=== PATIENT | male | born 1995 | race Caucasian/White ===

== ENCOUNTER 2022-03-14 13:49 | Inpatient (IN) ==
[~2022-03-14 13:49] MED LIST: RAPID SEQUENCE INDUCTION BAG ONE
[2022-03-14] MEDS ORDERED: PROPOFOL IV EMULSION 10 MG/ML 100 ML VIAL IV ONE (13:53)
[2022-03-14] MEDS ORDERED: STAT IV Infusion **Titration per Protocol STA (13:57)
[2022-03-14] MEDS ORDERED: PROPOFOL BOLUS FROM BAG IV PRN (13:57)
[2022-03-14] MEDS ORDERED: SODIUM CHLORIDE 0.9% 1000ML 2,000 ML IV ONE (13:57)
[2022-03-14] MEDS ORDERED: propofoL 1,000 MG/100 ML VIAL IV SCH (14:00)
[2022-03-14 14:09] LABS: iSTAT Creatinine 1.2 mg/dl (0.6-1.3); iSTAT Hemoglobin 16.3 g/dl (14.0-18.0); iSTAT Ionized Calcium 1.26 mmol/l (1.12-1.32); iSTAT Potassium 5.1 mmol/L (3.3-5.0)
[2022-03-14 14:12] LABS: Basophils # (auto) 0.01 K/uL (0-0.2); Basophils % (auto) 0.1 %; Eosinophils # (auto) 0.05 K/uL (0-0.5); Eosinophils % (auto) 0.7 %; Hematocrit (blood only) 45.6 % (42-52); Hemoglobin 16.4 g/dL (14.0-18.0); Immature Granulocytes # (auto) 0.03 K/uL (0.00-0.02); Immature Granulocytes % (auto) 0.4 %; Lymphocytes # (auto) 1.69 K/uL (1.2-3.4); Mean Corpuscular Hemoglobin 32.3 pg (25-34); Mean Corpuscular Volume 89.9 fL (80-100); Mean Platelet Volume 11.1 fL (7.4-10.4); Monocytes # (auto) 0.38 K/uL (0.11-0.59); Monocytes % (auto) 4.9 %; Neutrophils # (auto) 5.53 K/uL (1.4-6.5); Neutrophils % (auto) 71.9 %; Platelet Count 154 K/uL (130-400); RDW Coefficient of Variation 12.5 % (11.5-14.5); RDW Standard Deviation 41.5 fL (36.4-46.3); Red Blood Count 5.07 M/uL (4.7-6.1); White Blood Count 7.69 K/uL (4.8-10.8)
[2022-03-14] MEDS ORDERED: cefTRIAXone SODIUM 2,000 MG in DEXTROSE 5% 50 ML IV ONE (14:15)
[2022-03-14] MEDS ORDERED: metroNIDAZOLE 500 MG/100 ML BAG IV ONE (14:15)
--- NOTE | 2022-03-14 14:18 | XRay Report ---
XR chest 1V portable supine CLINICAL HISTORY: post intubation COMPARISON STUDY: No previous studies for comparison. FINDINGS: Tip of endotracheal tube is 7.5 cm above the meri. Tip of nasogastric tube is within the gastric cardia. Enlargement of the cardiac silhouette may be technical. No pneumothorax is identified on supine exam. Lungs are clear. Pulmonary vascularity is normal. IMPRESSION: 1. Tip of endotracheal tube 7.5 cm above the meri. The tube could be advanced 2 cm. 2. Tip of nasogastric tube within the gastric cardia. Tip could be advanced 5 cm. 3. Enlargement of the cardiac silhouette, likely technical. ACT 112: Negative or not required by law. Electronically signed by: Rc Oshea M.D. 03/14/2022 2:16 PM
[2022-03-14 14:19] LABS: Appearance Urine Cloudy (Clear); Blood Urine 1+ (Negative); Color Urine Orange; Epithelial Cell Urine Auto >30 /lpf (0-5); Glucose Urine UA Negative (Negative); Ketones Urine 1+ (Negative); Leukocyte Esterase Urine Trace (Negative); Nitrite Urine Positive (Negative); Protein Urine 2+ (Negative); Specific Gravity Urine 1.027 (1.000-1.030); Urobilinogen Urine Negative (Negative); pH Urine 5.5 (4.5-7.5)
[2022-03-14] MEDS ORDERED: cefTRIAXone SODIUM 2000MG/70ML D5W IV ONE ×2 (14:19→14:30)
[2022-03-14] MEDS ORDERED: OPTIRAY 320 100ml IV ONE (14:21)
[2022-03-14 14:24] LABS: Bilirubin Urine 2+ (Negative)
[2022-03-14 14:33] LABS: Bacteria Urine Automated 1+ (Negative); Calcium Oxalate Crystals Urine Present (None Prsent); Mucus Urine Present (None Prsent)
--- NOTE | 2022-03-14 14:38 | CT Scan Report ---
CT OF THE HEAD WITHOUT CONTRAST CLINICAL HISTORY: unresponsive COMPARISON STUDY: No previous studies for comparison. TECHNIQUE: Helical axial images of the head were obtained without IV contrast. Automated exposure con trol was utilized for the study. A dose lowering technique was utilized adhering to the principles o f ALARA. FINDINGS: No acute intracranial hemorrhage, midline shift or mass effect is present. The ventricular system is unremarkable. The basal cisterns are patent. No extra-axial collections are present. There are no findings to suggest acute dural sinus thrombosis or acute territorial infarct. No significant calvarial abnormalities are present. Fluid within the nasopharynx is likely related to intubation. Mi nimal ethmoid sinus mucosal thickening is present. IMPRESSION: 1. No acute intracranial findings. 2. No acute calvarial fracture. ACT 112: Negative or not required by law. Electronically signed by: Rc Oshea M.D. 03/14/2022 2:36 PM
[2022-03-14 14:42] LABS: Albumin Globulin Ratio 1.5 (0.9-2); Bilirubin,Total 1.2 mg/dl (0.2-1.0); Calcium 9.8 mg/dl (8.5-10.1); Creatinine Clr Calc Pharmacy 16.9 ml/min; Est GFR (African American) 52.5 ml/min; Est GFR (Non-African American) 45.3 ml/min; Globulin 3.3 gm/dl (2.5-4.0); Magnesium 1.7 mg/dl (1.7-2.4); Total Protein 8.3 gm/dl (6.0-8.3)
[2022-03-14 14:43] LABS: Amphetamines+Metham, Urine Neg (Neg); Barbiturates, Urine Neg (Neg); Benzodiazepine, Urine Neg (Neg); Cocaine, Urine Neg (Neg); MDMA (Ecstacy), Urine Neg (Neg); Methadone, Urine Neg (Neg); Opiate, Urine Neg (Neg); Phencyclidine, Urine Neg (Neg)
[2022-03-14 14:44] LABS: Troponin I High Sensitivity 3.4 pg/ml (0-20)
--- NOTE | 2022-03-14 14:45 | CT Scan Report ---
CT OF THE CHEST WITH IV CONTRAST CLINICAL HISTORY: eval for aspiration: unresponsive COMPARISON STUDY: Chest radiograph performed earlier today. TECHNIQUE: Following IV administration of 93 mL of Optiray, helical axial images of the chest were o btained. Sagittal and coronal reconstructions were viewed as well as maximal intensity projections o n an independent 3-D workstation. Automated exposure control was utilized for the study. A dose low ering technique was utilized adhering to the principles of ALARA. CT DOSE: 1043.04 mGy.cm FINDINGS: Endotracheal and nasogastric tubes are in place. No thoracic aortic dissection is present. Pulmonary arteries are suboptimally opacified but there is no central pulmonary embolus. There is genna rderline cardiomegaly. No enlarged thoracic lymph nodes are present. There is no pneumothorax or pleu ral effusion. There are mild alveolar opacities within the left lung. There is no cavitation. Central airways are patent. No acute fracture is identified within visualized portions of the thorax. Mild s plenomegaly is noted. IMPRESSION: 1. Mild airspace opacities within the left lung which favor an infectious process. Aspiration pneumon itis is also within the differential. 2. No pneumothorax. 3. Borderline cardiomegaly. 4. Mild splenomegaly. ACT 112: Negative or not required by law. Electronically signed by: Rc Oshea M.D. 03/14/2022 2:43 PM
[2022-03-14] MEDS ORDERED: fentaNYL citrate 100 MCG/2 ML VIAL ONE (14:58)
[2022-03-14] MEDS ORDERED: fentaNYL citrate 100 MCG/2 ML VIAL IV ONE (15:07)
[2022-03-14 16:10] LABS: Acetaminophen < 3 ug/ml (10-30); Salicylate < 3.0 mg/dl (3.0-30)
--- NOTE | 2022-03-14 17:26 | History & Physical Report ---
Date of Service March 14, 2022 Assessment & Plan (1) Unresponsiveness: Plan: Patient with episode of unresponsiveness during physical activity - this lasted 1-3 hours. DDX: Cardiovascular vs. Neurogenic vs. endocrine vs other - Amnestic for whole episode- spontaneously awoken in EMD and successfully extubated - Urine Tox screen negative - metabolically with normal HCO3 and without gap - Potassium 5, Mag 1.7- repeat - Will obtain ECHO in am - borderline limits of heart on CXR and CT scan of chest - TSH normal - AM cortisol - WBC normal- blood and urine cultures pending -telemetry overnight - EEG could be considered if all other etiologies r/o (2) Afib: Plan: ECG obtained via EMD - attached to hard chart - Cardioverted for HR of 127 in the EMD - NSR at this time - no further ectopy - as above - ECHO in am (3) Aspiration pneumonitis: Plan: No further abx at this time - follow fever curve - ICS q1 while awake (4) Hypomagnesemia: Plan: Replete keep mag ~2.0 (5) Abnormal urinalysis: Plan: + WBC, +RBC, + hyaline Casts > 30 epithelial cells - repeat in AM with janitor and cleaner sample History of Present Illness Primary Care Provider: NO PCP 26 YOM with history of: Depression, takes emtricitabine-tenofovir for prep. Patient was brought in by EMS today for being found on park bench not responsive. The patient was nasally intubated initially by EMD for obtundation on arrival around 1340. He spontaneously awoken and was then extubated 1400. He was also cardioverted in the EMD for HR of 127 following being bradycardic via EMS in the 40s. Also was hypothermic on arrival which has resolved. Patient is currently awake and hemodynamically stable without deficits. Patient has no recollection of the events. Patient states he got up this morning and went for a run, unsure if he ate anything before this. During his run he remembers vomiting on his shoes and possibly not feeling well so sat on a bench. He was discovered by some local business personnel, was unresponsive and did not wake up after they dumped water on him so EMS was called. Patient denies any history of this occurring previously. He runs 2-3 times per week and does weight lifting and other cardiac intensity work outs 3-5 days per week. He denies any workout or pre-work out supplement use. Denies any new medications. Smokes marijuana maybe 1-2 times per month. Takes a Magnesium supplementation. In the EMD the patient had CT scan of head, CT scan of the chest and CXR completed. He was given Rocephin and Flagyl for aspiration pneumonitis. CT scan with borderline cardiac size, and mild opacities. CT scan of the head with mucosal thickening. UA was obtained. Patient will be admitted to PCU follow hemodynamics and telemetry. ECHO in the am. Patient denies any family history of cardiac disease, dysrhythmias or sudden cardiac deaths. COVID test on admission is: NEGATIVE Allergies Allergy/AdvReac Type Severity Reaction Status Date / Time No Known Allergies Allergy Unverified 03/14/22 16:40 Home Medications Medication Instructions Recorded Confirmed Type emtricitabine 200 mg-tenofovir 1 tab PO DAILY 03/14/22 03/14/22 History disoproxil fumarate 300 mg tablet escitalopram oxalate 10 mg tablet 10 mg PO DAILY 03/14/22 03/14/22 History Past Med/Surg History Medical History (Updated 03/14/22 @ 18:28 by MITCH Fernandes) Afib Aspiration pneumonitis Depression Hypomagnesemia Family History (Updated 03/14/22 @ 17:45 by MITCH Fernandes) Denies family history of Diabetes Coronary heart disease Dyslipidemia Depression Heart disease Kidney disease COPD (chronic obstructive pulmonary disease) Hypertension Stroke Social History (Updated 03/14/22 @ 17:43 by MITCH Fernandes) Smoking Status: Never smoker Hx Alcohol Use: No Hx Substance Use: Yes (uses a few times a week) Preferred Language: Bengali Administrative Support Assistant Required: No Beliefs That Will Affect Care: None Current Living Situation: Other Current Living Situation Comment: lives with friends Feels Safe at Home: Yes Safety Concerns: Feels Safe At This Time Assistive Devices: None Review of Systems Review of Systems: REVIEW OF SYSTEMS: Constitutional: No fever, sweats or chills Eyes: No diplopia, no worsening or blurred vision ENT: normal hearing, no trouble swallowing Respiratory: No cough, sputum, dyspnea at rest or on exertion Cardiovascular: No chest pain, tightness or palpitations Abdomen: No pain, nausea, vomiting, diarrhea or constipation Musculoskeletal: No joint pain, calf pain, swelling Neurologic: No weakness, numbness/tingling, or balance problems Psychiatric: (+)depression Skin: No rash or itch Physical Exam Physical Exam: PHYSICAL EXAM: General: awake, alert, no apparent distress Head: Normocephalic, atraumatic ENT: PERRL, EOMI, no pharyngeal exudate, mucous membranes moist Neuro: AAO x 3, speech clear and appropriate, strength intact bilaterally 5/5, sensation intact and equal all extremities and dermatomes, no pronator drift, no cervical pain with palpation/movement Chest: equal rise and fall of the chest, no accessory muscle use, no heaves or thrills, Clear to auscultation, on room air, Cardiac: Regular rate and rhythm, telemetry reviewed, skin warm dry, cap refill <3 seconds, peripheral pulses +2 no JVD, no murmur, no edema GI: NABS x 4 quadrants, soft, nontender to palpation, no rebound, guarding or tenderness : Spontaneously voiding, no pain, no CVA tenderness, Extremities: Normal inspection, no peripheral edema or erythema, calfs nontender to palpation Psych: Normal mood and affect Skin: no rash or erythema Results & Data Results & Data ([facility]) Vital Signs (Past 12 Hours) Vital Signs Temp Pulse Pulse Resp BP BP Pulse Ox 03/14/22 17:00 89 19 123/80 97 03/14/22 16:44 92 H 18 118/87 96 03/14/22 16:25 90 14 134/98 95 03/14/22 16:20 96 H 14 128/96 98 03/14/22 16:15 95 H 12 121/92 100 03/14/22 16:12 14 97 03/14/22 16:11 98 H 18 129/85 100 03/14/22 16:05 99 H 20 96/60 L 97 03/14/22 15:50 61 21 100/64 99 03/14/22 15:40 62 21 98/61 L 99 03/14/22 15:30 64 20 101/65 100 03/14/22 15:25 35.3 C L 72 18 109/76 100 03/14/22 15:21 64 20 99/63 L 100 03/14/22 15:17 66 22 100 03/14/22 15:15 63 20 99/63 L 100 03/14/22 15:03 67 18 103/76 100 03/14/22 15:00 108 H 16 83/60 L 100 03/14/22 14:49 127 H 19 100 03/14/22 14:40 34.7 C L 127 H 18 107/86 100 03/14/22 14:15 117/92 03/14/22 13:53 127 H 16 126/85 95 Laboratory Results Abnormal lab results 03/14/22 03/14/22 03/14/22 Range/Units 13:53 13:53 13:57 MPV 11.1 H (7.4-10.4) fL Immature Gran # (Auto) 0.03 H (0.00-0.02) K/uL POC Potassium 5.1 H (3.3-5.0) mmol/L POC Chloride 100 L (101-112) mmol/L Glucose 106 H (70-99(Fasting)) mg/dl POC Glucose (other) 114 H (70-99) mg/dl Total Bilirubin 1.2 H (0.2-1.0) mg/dl Urine Appearance (Clear) Urine Protein (Negative) Urine Ketones (Negative) Urine Blood (Negative) Urine Nitrite (Negative) Urine Bilirubin (Negative) Ur Leukocyte Esterase (Negative) Urine WBC (Auto) (0-5) /hpf Urine RBC (Auto) (0-4) /hpf U Hyaline Cast (Auto) (0-5) /lpf U Epithel Cells (Auto) (0-5) /lpf Urine Bacteria (Auto) (Negative) Calcium Oxalate Crystal (None Prsent) Urine Mucus (None Prsent) Salicylates (3.0-30) mg/dl Acetaminophen (10-30) ug/ml 03/14/22 03/14/22 Range/Units 14:03 15:24 MPV (7.4-10.4) fL Immature Gran # (Auto) (0.00-0.02) K/uL POC Potassium (3.3-5.0) mmol/L POC Chloride (101-112) mmol/L Glucose (70-99(Fasting)) mg/dl POC Glucose (other) (70-99) mg/dl Total Bilirubin (0.2-1.0) mg/dl Urine Appearance Cloudy A (Clear) Urine Protein 2+ H (Negative) Urine Ketones 1+ H (Negative) Urine Blood 1+ H (Negative) Urine Nitrite Positive A (Negative) Urine Bilirubin 2+ H (Negative) Ur Leukocyte Esterase Trace H (Negative) Urine WBC (Auto) 5-10 H (0-5) /hpf Urine RBC (Auto) 5-10 H (0-4) /hpf U Hyaline Cast (Auto) 5-10 H (0-5) /lpf U Epithel Cells (Auto) >30 H (0-5) /lpf Urine Bacteria (Auto) 1+ H (Negative) Calcium Oxalate Crystal Present A (None Prsent) Urine Mucus Present A (None Prsent) Salicylates < 3.0 L (3.0-30) mg/dl Acetaminophen < 3 L (10-30) ug/ml Diagnostic Findings Chest CT 03/14/22 14:05 CT OF THE CHEST WITH IV CONTRAST CLINICAL HISTORY: eval for aspiration: unresponsive COMPARISON STUDY: Chest radiograph performed earlier today. TECHNIQUE: Following IV administration of 93 mL of Optiray, helical axial images of the chest were obtained. Sagittal and coronal reconstructions were viewed as well as maximal intensity projections on an independent 3-D workstation. Automated exposure control was utilized for the study. A dose lowering technique was utilized adhering to the principles of ALARA. CT DOSE: 1043.04 mGy.cm FINDINGS: Endotracheal and nasogastric tubes are in place. No thoracic aortic dissection is present. Pulmonary arteries are suboptimally opacified but there is no central pulmonary embolus. There is borderline cardiomegaly. No enlarged thoracic lymph nodes are present. There is no pneumothorax or pleural effusion. There are mild alveolar opacities within the left lung. There is no cavitation. Central airways are patent. No acute fracture is identified within visualized portions of the thorax. Mild splenomegaly is noted. IMPRESSION: 1. Mild airspace opacities within the left lung which favor an infectious process. Aspiration pneumonitis is also within the differential. 2. No pneumothorax. 3. Borderline cardiomegaly. 4. Mild splenomegaly. ACT 112: Negative or not required by law. Electronically signed by: Rc Oshea M.D. 03/14/2022 2:[address] 03/14/22 14:05 CT OF THE HEAD WITHOUT CONTRAST CLINICAL HISTORY: unresponsive COMPARISON STUDY: No previous studies for comparison. TECHNIQUE: Helical axial images of the head were obtained without IV contrast. Automated exposure control was utilized for the study. A dose lowering technique was utilized adhering to the principles of ALARA. FINDINGS: No acute intracranial hemorrhage, midline shift or mass effect is present. The ventricular system is unremarkable. The basal cisterns are patent. No extra-axial collections are present. There are no findings to suggest acute dural sinus thrombosis or acute territorial infarct. No significant calvarial abnormalities are present. Fluid within the nasopharynx is likely related to intubation. Minimal ethmoid sinus mucosal thickening is present. IMPRESSION: 1. No acute intracranial findings. 2. No acute calvarial fracture. ACT 112: Negative or not required by law. Electronically signed by: Rc Oshea M.D. 03/14/2022 2:36 PM Chest X-Ray 03/14/22 14:08 XR chest 1V portable supine CLINICAL HISTORY: post intubation COMPARISON STUDY: No previous studies for comparison. FINDINGS: Tip of endotracheal tube is 7.5 cm above the meri. Tip of nasogastric tube is within the gastric cardia. Enlargement of the cardiac silhouette may be technical. No pneumothorax is identified on supine exam. Lungs are clear. Pulmonary vascularity is normal. IMPRESSION: 1. Tip of endotracheal tube 7.5 cm above the meri. The tube could be advanced 2 cm. 2. Tip of nasogastric tube within the gastric cardia. Tip could be advanced 5 c m. 3. Enlargement of the cardiac silhouette, likely technical. ACT 112: Negative or not required by law. Electronically signed by: Rc Oshea M.D. 03/14/2022 2:16 PM Medications Administered Home Medications emtricitabine 200 mg-tenofovir disoproxil fumarate 300 mg tablet 1 tab PO DAILY 03/14/22 [History Confirmed 03/14/22] escitalopram oxalate 10 mg tablet 10 mg PO DAILY 03/14/22 [History Confirmed 03/14/22] Active Medications Propofol (Diprivan) 1,000 mg in 100 mls @ 0 mls/hr IV .Q0M [facility], [facility]; Protocol Stop: 03/17/22 13:59 Last Titration: 03/14/22 16:11 Dose: 0 mcg/kg/min, 0 mls/hr Documented by: Propofol (Propofol Bolus From Bag) 20 mg IV Q5M PRN PRN Reason: Sedation Stop: 03/17/22 13:56 Last Admin: 03/14/22 14:07 Dose: 20 mg Documented by: Propofol (Diprivan) 1,000 mg in 100 mls @ 0 mls/hr IV .Q0M [facility]; Protocol Stop: 03/17/22 13:59 Last Titration: 03/14/22 16:11 Dose: 0 mcg/kg/min, 0 mls/hr Documented by: [id number] Titration: 03/14/22 16:03 Dose: 15 mcg/kg/min, 7.4 mls/hr Documented by: [id number] Titration: 03/14/22 15:50 Dose: 20 mcg/kg/min, 9.8 mls/hr Documented by: [id number] Titration: 03/14/22 14:36 Dose: 25 mcg/kg/min, 12.3 mls/hr Documented by: [id number] Titration: 03/14/22 14:35 Dose: 25 mcg/kg/min, 12.3 mls/hr Documented by: [id number] Admin: 03/14/22 14:00 Dose: 20 mcg/kg/min, 9.8 mls/hr Documented by: [id number] Cosigned by: [id number] Propofol (Propofol Bolus From Bag) 20 mg IV Q5M PRN PRN Reason: Sedation Stop: 03/17/22 13:56 Last Admin: 03/14/22 14:07 Dose: 20 mg Documented by: [id number] Cosigned by: [id number] Discontinued Medications Ceftriaxone Sodium (Ceftriaxone Sodium 2000mg/70ml D5w) Confirm Administered Dose 2,000 mg IV .STK-MED ONE Stop: 03/14/22 14:20 Last Admin: 03/14/22 14:39 Dose: 2,000 mg Documented by: [id number] Ceftriaxone Sodium (Ceftriaxone Sodium 2000mg/70ml D5w) 2,000 mg IV NOW ONE Stop: 03/14/22 14:31 Last Admin: 03/14/22 14:39 Dose: Not Given Documented by: [id number] Fentanyl Citrate (Fentanyl Citrate 100 Mcg/2 Ml Vial) Confirm Administered Dose 100 mcg .ROUTE .STK-MED ONE Stop: 03/14/22 14:59 Last Increment: 03/14/22 15:07 Dose: 50 mcg Documented by: [id number] Fentanyl Citrate (Fentanyl Citrate 100 Mcg/2 Ml Vial) 50 mcg IV NOW ONE Stop: 03/14/22 15:08 Last Admin: 03/14/22 15:10 Dose: Not Given Documented by: [id number] Sodium Chloride (Nss 1000ml) 2,000 mls @ 999 mls/hr IV .Q2H1M ONE Stop: 03/14/22 15:57 Last Infusion: 03/14/22 17:44 Dose: 0 mls/hr Documented by: [id number] Admin: 03/14/22 13:45 Dose: 999 mls/hr Documented by: [id number] Metronidazole (Flagyl) 500 mg in 100 mls @ 100 mls/hr IV NOW ONE Stop: 03/14/22 15:14 Last Infusion: 03/14/22 17:44 Dose: 0 mls/hr Documented by: [id number] Admin: 03/14/22 14:46 Dose: 100 mls/hr Documented by: [id number] Ioversol (Optiray 320 100ml) 93 ml IV ONCE ONE Stop: 03/14/22 14:22 Last Admin: 03/14/22 14:29 Dose: 93 ml Documented by: [id number] Miscellaneous (Rapid Sequence Induction Bag) Confirm Administered Dose 1 ea .ROUTE .STK-MED ONE Stop: 03/14/22 13:42 Last Admin: 03/14/22 14:27 Dose: 1 ea Documented by: [id number] Propofol (Propofol Iv Emulsion 10 Mg/Ml 100 Ml Vial) Confirm Administered Dose 1,000 mg IV .STK-MED ONE Stop: 03/14/22 13:54 Last Admin: 03/14/22 14:18 Dose: Not Given Documented by: [id number] ECG Additional Comments: AFIB with RVR interpreted - on hard chart Repeat: Normal sinus rhythm Normal ECG When compared with ECG of 14-MAR-2022 15:03, (unconfirmed) No significant change was found QT/QTc 352/423 m QRS duration 86 ms Code Status & VTE Plan Code Status CODE: FULL VTE: SCDS, Ambulation Supervising Physician Co-Signing Physician Notes I supervised MITCH Huntley on this admission. I interviewed and examined the patient independently of him. The plan is as written in his note except for any following changes/exceptions: None 26yo M found unresponsive on a park bench today. Remembers only that he went for a run or jog today. Denies any hx of drug use. No family hx of sudden cardiac , seizure, or other related etiology. Was in afib with RVR in the ER and cardioverted. Plan to admit for telemetry, echo. Etiology at this time is unclear. Could consider EEG as well, though prolonged down time would point away from seizure. PG Care Time/CCT Total # of Minutes Spent Total Time Spent with Patient: Total time spent is greater than 50% in coordination of care (as documented) at patient's floor/unit and/or counseling patient: Coding Level of Care Code 17738 Initial Inpt Care Lvl 3 Diagnoses Afib I48.91 Aspiration pneumonitis J69.0 Hypomagnesemia E83.42 Unresponsiveness R41.89 Abnormal urinalysis R82.90
--- NOTE | 2022-03-14 17:39 | Emergency Department Note ---
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 He was initially an unknown male patient found unresponsive on a bench downtown having vomited. It appeared that he may have been running as he was only wearing a pair of jogging shorts, running shoes and earbuds. Upon arrival to the ER, the patient had snoring respirations and it seemed he would not be able to protect his airway, RSI was performed and the patient's airway was protected with endotracheal intubation. Once the patient was placed on the ventilator and the endotracheal tube was suctioned, bile was suctioned from his airway and there was concern that the patient may have aspirated at some point. The patient was prophylaxed with IV Rocephin and IV Cipro. Upon initial presentation per EMS, the patient was in a normal sinus rhythm at a rate of 65 but converted into an atrial fibrillation with a rapid ventricular response in the 140s. He remained in his tachycardic rate in the emergency department and eventually his blood pressure dropped and required synchronized cardioversion. He tolerated this procedure well and his blood pressure responded nicely. The patient became hypothermic here in the emergency department and required a bear hugger to support his body temperature. A Munoz catheter was placed to measure urine output and the patient had fairly little urine output despite receiving 2 L of crystalloid therapy. One of the initial thoughts was the patient may be suffering from acute heat stroke or heat exhaustion and he was fluid rehydrated with crystalloids. We also consider the possibility of acute rhabdomyolysis initially but the patient's total CK was normal. The patient went for CT scan of the brain which was unremarkable. He also went for CT scan of the chest to further evaluate for possible aspiration. There was evidence of a left sided opacity which is most likely consistent with an aspiration pneumonitis. Just prior to the admitting team evaluating the patient, the patient seemed to regain consciousness and opened his eyes and seemed to have purposeful movements and began to communicate. The propofol was slowly turned off and the patient was easily extubated. He had no significant recollection of what may have happened other than he had gone out for normal long distance run which is not unusual for him. Triage Nursing notes reviewed and agree with them. Vital Signs: reviewed and remarkable for hypothermia Differential diagnosis: Drug intoxication, alcohol intoxication, hypoglycemia, seizure, intracranial hemorrhage, acute CVA, heatstroke, rhabdomyolysis, heat exhaustion, anaphylaxis ER treatment provided: IV normal saline bolus x2 L IV rocuronium IV etomidate IV Cipro drip IV Rocephin IV fentanyl IV propofol drip Diagnostics interpreted by me: ECG: Atrial fibrillation at a rate of 129 with evidence of early repolarization. There is no ectopy. No obvious ischemia. Repeat EKG (status post cardioversion ) normal sinus rhythm at a rate of 67. No ST segment elevation or signs of ischemia. There is no ectopy Cardiac Monitoring: A. fib with RVR at a rate of 127 Laboratory studies: See below Imaging studies: As per my interpretation Portable chest x-ray: Endotracheal tube is 5 cm above the meri; cardiomegaly; no obvious pulmonary pathology HPI: 26/M arrives for evaluation of unresponsiveness. The patient was noted by business members downtown to be sitting on a bench and found to be unresponsive. They thought he may be suffering from heatstroke or heat exhaustion and poured ice water on him but he did not come to. They called 911. Upon EMS arrival, the patient was unresponsive but breathing. He was bradycardic with a normal blood pressure. His BSG was normal. It appeared that he may have been running as he had on jogging shorts with no T-shirt and running shoes. He had vomited on himself. ROS: Unobtainable as he was unresponsive PAST MEDICAL HISTORY: Unobtainable as he was unresponsive PAST SURGICAL HISTORY: Unobtainable FAMILY HISTORY: Unobtainable SOCIAL HISTORY: Unobtainable HOME MEDICATIONS: Unobtainable ALLERGIES: Unobtainable VITALS:See Below PHYSICAL EXAMINATION: HEENT: Head - normocephalic and atraumatic Pupils are equal, round, and reactive to light. Extraocular eye muscles are intact, and sclera are anicteric. Nose - moist nasal mucosa without discharge. Mouth - moist buccal mucosa. Oropharynx is nonerythematous and there is no tonsillar exudate or edema noted. Neck: Supple; no nuchal rigidity Heart: Irregularly irregular rhythm with a tachycardic rate Lungs: Clear to auscultation bilaterally with no wheezes, rales, or rhonchi. Abdomen: Soft, completely nontender, nondistended, with good bowel sounds. There are no palpable pulsatile masses or hepatosplenomegaly. There is no guarding, rigidity, or rebound noted. Extremities: No evidence of cyanosis, clubbing, or edema. There are easily palpable peripheral pulses. Skin: warm and dry with good turgor and no rashes. Multiple tattoos ED COURSE: Times/Reassessments: The patient was evaluated emergently in room A1. Report was given from EMS. An order was placed for continuous cardiac monitoring. The patient was in atrial fibrillation with rapid ventricular response at a rate of 127. A twelve-lead EKG was obtained. Decision was made to perform rapid sequence induction with endotracheal intubation. Endotracheal Intubation Indication snoring respirations. The patient was on 100% oxygen via NRB prior to the procedure. Suction, airway equipment, RSI drugs, respiratory equipment, and appropriate personnel were prepared prior to the initiation of the procedure. A time out was taken. Induction was performed with etomidate and rocuronium. After observing the clinical benefit of the medications, the airway was easily visualized utilizing a glide scope. A 7.5size ETT tube was placed atraumatically to 24cm using standard technique. The cuff inflated without signs of malfunction. There were bilateral breath sounds, positive colormetric change, no gastric sounds, and post procedure pulse oximetry was 98%. Post intubation sedation was administered using propofol. There were no complications. A postintubation x-ray was obtained. The patient was bolused with 2 L of normal saline solution and a Munoz catheter was inserted. The patient was noted to be hypothermic and a bear hugger was applied. An OG tube was placed. When the patient was placed on the ventilator, suction revealed bile coming from the lungs and there was concern for aspiration. The patient will be started on IV antibiotics-IV Rocephin and IV Cipro. The patient will go for CT scan of the brain and CT scan of the chest. An ABG was obtained revealed a pH of 7.32 PCO2 of 52 and a bicarb of 27. Some slight adjustments were made to the ventilator to account for this pH and bicarb. Upon returning from radiology, the patient was noted to still be significantly tachycardic with A. fib/RVR and now his blood pressure had dropped despite receiving IV crystalloid therapy. The decision was made to perform a synchronized cardioversion. A time out was taken and the correct patient and procedure identified. The patient was given 50 mcg of IV fentanyl. The biphasic defibrillator was set to 100 joules of energy and synched. After confirmation of sedation and "all clear" safety check the synchronized shock was delivered. This resulted in successful conversion of the dysrhythmia back into sinus rhythm. See nursing notes for dosages and times. The patient's blood pressure was more stable after this. Nursing staff alerted me that the patient was becoming more responsive. We decreased the propofol dose and the patient was fully responsive and able to communicate. At that point patient was extubated and placed on nonrebreather mask he tolerated this well. He has no significant memory of the incidence of today. I discussed the case with the [facility] Hospitalist and they will evaluate for further management. I have personally spent greater than 130 minutes of critical care time in the direct management of this patient. This includes bedside care, interpretation of diagnostic studies, and testing, discussion with consultants, patient, and family members, and other required patient management activities. This 130 minutes is in excess of all separately billable procedures. 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 Beliefs That Will Affect Care: None Current Living Situation: Other Current Living Situation Comment: lives with friends Feels Safe at Home: Yes Assistive Devices: None Allergies Allergies Allergy/AdvReac Type Severity Reaction Status Date / Time No Known Allergies Allergy Unverified 03/14/22 16:40 Home Meds Home Medications Medication Instructions Recorded Confirmed emtricitabine 200 mg-tenofovir 1 tab PO DAILY 03/14/22 03/14/22 disoproxil fumarate 300 mg tablet escitalopram oxalate 10 mg tablet 10 mg PO DAILY 03/14/22 03/14/22 Results & Data (ED) Vital Signs Vital Signs - 24 hr 03/14/22 13:53 03/14/22 14:04 03/14/22 14:15 Temperature Temperature Source Pulse Rate 127 H Pulse Rate [Finger] Pulse Rhythm [Finger] Pulse Strength [Finger] Respiratory Rate 16 Respiratory Effort / Characteristics Respiratory Depth Respiratory Pattern Blood Pressure 126/85 Blood Pressure [Right Arm] 117/92 Blood Pressure Mean 98 Blood Pressure Mean [Right Arm] 100 Blood Pressure Position [Right Arm] Pulse Oximetry 95 Oxygen Delivery Method Nasal Cannula Mechanical Vent Oxygen Flow Rate 6 Fraction of Inspired Oxygen 60 SaO2/FiO2 Ratio Sepsis Recent Fever Within 48 Hours No Sepsis New/Unexplained Change in Mental Status No Sepsis Action Taken by Nursing No Action Required End-Tidal CO2 03/14/22 14:40 03/14/22 14:49 03/14/22 15:00 Temperature 34.7 C L Temperature Source Rectal Pulse Rate 127 H Pulse Rate [Finger] 127 H 108 H Pulse Rhythm [Finger] Pulse Strength [Finger] Respiratory Rate 18 19 16 Respiratory Effort / Characteristics Respiratory Depth Respiratory Pattern Blood Pressure Blood Pressure [Right Arm] 107/86 83/60 L Blood Pressure Mean Blood Pressure Mean [Right Arm] 93 67 Blood Pressure Position [Right Arm] Pulse Oximetry 100 100 100 Oxygen Delivery Method Mechanical Vent Mechanical Vent Oxygen Flow Rate Fraction of Inspired Oxygen 35 50 SaO2/FiO2 Ratio 285 Sepsis Recent Fever Within 48 Hours Sepsis New/Unexplained Change in Mental Status Sepsis Action Taken by Nursing End-Tidal CO2 45 03/14/22 15:03 03/14/22 15:15 03/14/22 15:17 Temperature Temperature Source Pulse Rate 66 Pulse Rate [Finger] 67 63 Pulse Rhythm [Finger] Pulse Strength [Finger] Respiratory Rate 18 20 22 Respiratory Effort / Characteristics Respiratory Depth Respiratory Pattern Blood Pressure Blood Pressure [Right Arm] 103/76 99/63 L Blood Pressure Mean Blood Pressure Mean [Right Arm] 85 75 Blood Pressure Position [Right Arm] Pulse Oximetry 100 100 100 Oxygen Delivery Method Mechanical Vent Mechanical Vent Oxygen Flow Rate Fraction of Inspired Oxygen 35 28 SaO2/FiO2 Ratio 285 Sepsis Recent Fever Within 48 Hours Sepsis New/Unexplained Change in Mental Status Sepsis Action Taken by Nursing End-Tidal CO2 47 03/14/22 15:21 03/14/22 15:25 03/14/22 15:30 Temperature 35.3 C L Temperature Source Rectal Pulse Rate Pulse Rate [Finger] 64 72 64 Pulse Rhythm [Finger] Regular Pulse Strength [Finger] Normal Respiratory Rate 20 18 20 Respiratory Effort / Characteristics Non-Labored Respiratory Depth Normal Respiratory Pattern Regular Blood Pressure Blood Pressure [Right Arm] 99/63 L 109/76 101/65 Blood Pressure Mean Blood Pressure Mean [Right Arm] 75 87 77 Blood Pressure Position [Right Arm] Lying Pulse Oximetry 100 100 100 Oxygen Delivery Method Mechanical Vent Mechanical Vent Mechanical Vent Oxygen Flow Rate Fraction of Inspired Oxygen 35 35 35 SaO2/FiO2 Ratio 285 285 285 Sepsis Recent Fever Within 48 Hours Sepsis New/Unexplained Change in Mental Status Sepsis Action Taken by Nursing End-Tidal CO2 03/14/22 15:40 03/14/22 15:50 03/14/22 16:05 Temperature Temperature Source Pulse Rate Pulse Rate [Finger] 62 61 99 H Pulse Rhythm [Finger] Regular Regular Regular Pulse Strength [Finger] Normal Normal Normal Respiratory Rate 21 21 20 Respiratory Effort / Characteristics Non-Labored Non-Labored Non-Labored Respiratory Depth Normal Normal Normal Respiratory Pattern Regular Regular Blood Pressure Blood Pressure [Right Arm] 98/61 L 100/64 96/60 L Blood Pressure Mean Blood Pressure Mean [Right Arm] 73 76 72 Blood Pressure Position [Right Arm] Lying Lying Pulse Oximetry 99 99 97 Oxygen Delivery Method Mechanical Vent Mechanical Vent Mechanical Vent Oxygen Flow Rate Fraction of Inspired Oxygen 35 35 SaO2/FiO2 Ratio 282 282 Sepsis Recent Fever Within 48 Hours Sepsis New/Unexplained Change in Mental Status Sepsis Action Taken by Nursing End-Tidal CO2 03/14/22 16:11 03/14/22 16:12 03/14/22 16:15 Temperature Temperature Source Pulse Rate Pulse Rate [Finger] 98 H 95 H Pulse Rhythm [Finger] Regular Regular Pulse Strength [Finger] Normal Normal Respiratory Rate 18 14 12 Respiratory Effort / Characteristics Non-Labored Non-Labored Non-Labored Respiratory Depth Normal Normal Normal Respiratory Pattern Regular Regular Blood Pressure Blood Pressure [Right Arm] 129/85 121/92 Blood Pressure Mean Blood Pressure Mean [Right Arm] 99 101 Blood Pressure Position [Right Arm] Lying Lying Pulse Oximetry 100 97 100 Oxygen Delivery Method Mechanical Vent Non-rebreather Non-rebreather Oxygen Flow Rate Fraction of Inspired Oxygen SaO2/FiO2 Ratio Sepsis Recent Fever Within 48 Hours Sepsis New/Unexplained Change in Mental Status Sepsis Action Taken by Nursing End-Tidal CO2 03/14/22 16:20 03/14/22 16:25 03/14/22 16:44 Temperature Temperature Source Pulse Rate Pulse Rate [Finger] 96 H 90 92 H Pulse Rhythm [Finger] Regular Regular Regular Pulse Strength [Finger] Normal Normal Normal Respiratory Rate 14 14 18 Respiratory Effort / Characteristics Non-Labored Non-Labored Non-Labored Respiratory Depth Normal Normal Normal Respiratory Pattern Regular Regular Regular Blood Pressure Blood Pressure [Right Arm] 128/96 134/98 118/87 Blood Pressure Mean Blood Pressure Mean [Right Arm] 106 110 97 Blood Pressure Position [Right Arm] Lying Lying Lying Pulse Oximetry 98 95 96 Oxygen Delivery Method Non-rebreather Room Air Room Air Oxygen Flow Rate Fraction of Inspired Oxygen SaO2/FiO2 Ratio Sepsis Recent Fever Within 48 Hours Sepsis New/Unexplained Change in Mental Status Sepsis Action Taken by Nursing End-Tidal CO2 03/14/22 17:00 03/14/22 17:30 Temperature 37.0 C Temperature Source Oral Pulse Rate Pulse Rate [Finger] 89 97 H Pulse Rhythm [Finger] Regular Regular Pulse Strength [Finger] Normal Normal Respiratory Rate 19 20 Respiratory Effort / Characteristics Non-Labored Non-Labored Respiratory Depth Normal Normal Respiratory Pattern Regular Regular Blood Pressure Blood Pressure [Right Arm] 123/80 133/80 Blood Pressure Mean Blood Pressure Mean [Right Arm] 94 97 Blood Pressure Position [Right Arm] Lying Lying Pulse Oximetry 97 94 Oxygen Delivery Method Room Air Room Air Oxygen Flow Rate Fraction of Inspired Oxygen SaO2/FiO2 Ratio Sepsis Recent Fever Within 48 Hours Sepsis New/Unexplained Change in Mental Status Sepsis Action Taken by Nursing End-Tidal CO2 Laboratory Data Result diagrams: 03/15/22 07:04 03/15/22 07:04 Lab Results 03/14/22 03/14/22 03/14/22 Range/Units 13:53 13:53 13:53 WBC 7.69 (4.8-10.8) K/uL RBC 5.07 (4.7-6.1) M/uL Hgb 16.4 (14.0-18.0) g/dL POC Hgb (14.0-18.0) g/dl Hct 45.6 (42-52) % POC Hct (42-52) % MCV 89.9 (80-100) fL MCH 32.3 (25-34) pg MCHC 36.0 (32-36) g/dL RDW Std Deviation 41.5 (36.4-46.3) fL RDW Coeff of Jareth 12.5 (11.5-14.5) % Plt Count 154 (130-400) K/uL MPV 11.1 H (7.4-10.4) fL Immature Gran % (Auto) 0.4 % Neut % (Auto) 71.9 % Lymph % (Auto) 22.0 % [place] % (Auto) 4.9 % Eos % (Auto) 0.7 % Baso % (Auto) 0.1 % Neut # (Auto) 5.53 (1.4-6.5) K/uL Lymph # (Auto) 1.69 (1.2-3.4) K/uL [place] # (Auto) 0.38 (0.11-0.59) K/uL Eos # (Auto) 0.05 (0-0.5) K/uL Baso # (Auto) 0.01 (0-0.2) K/uL Immature Gran # (Auto) 0.03 H (0.00-0.02) K/uL POC Sodium (135-144) mmol/L Sodium 141 (136-145) mmol/L POC Potassium (3.3-5.0) mmol/L Potassium 5.0 (3.5-5.1) mmol/L POC Chloride (101-112) mmol/L Chloride 101 (98-107) mmol/L Carbon Dioxide 29 (21-32) mmol/L POC Total CO2 (24-31) mmol/L Anion Gap 11 (3-11) POC Anion Gap (16-25) mmol/L POC BUN (7-18) mg/dl BUN 16 (6-23) mg/dl Creatinine 1.14 (0.6-1.4) mg/dl POC Creatinine (0.6-1.3) mg/dl Est Cr Clr Drug Dosing 16.9 ml/min Est GFR ( Amer) 52.5 ml/min Est GFR (Non-Af Amer) 45.3 ml/min BUN/Creatinine Ratio 14.0 (10-20) Glucose 106 H (70-99(Fasting)) mg/dl POC Glucose (other) (70-99) mg/dl Lactate (0.4-2.0) mmol/L Calcium 9.8 (8.5-10.1) mg/dl POC Ioniz Calcium Mai (1.12-1.32) mmol/l Magnesium 1.7 (1.7-2.4) mg/dl Total Bilirubin 1.2 H (0.2-1.0) mg/dl AST 23 (13-39) U/L ALT 22 (7-52) U/L Alkaline Phosphatase 84 (34-104) U/L Total Creatine Kinase 118 (30-223) U/L Troponin I High Sens 3.4 (0-20) pg/ml Total Protein 8.3 (6.0-8.3) gm/dl Albumin 5.0 (3.4-5.0) gm/dl Globulin 3.3 (2.5-4.0) gm/dl Albumin/Globulin Ratio 1.5 (0.9-2) Procalcitonin (0-0.5) ng/ml TSH 0.869 (0.300-4.500) uIu/ml Urine Color Urine Appearance (Clear) Urine pH (4.5-7.5) Ur Specific [place] (1.000-1.030) Urine Protein (Negative) Urine Glucose (UA) (Negative) Urine Ketones (Negative) Urine Blood (Negative) Urine Nitrite (Negative) Urine Bilirubin (Negative) Urine Urobilinogen (Negative) Ur Leukocyte Esterase (Negative) Urine WBC (Auto) (0-5) /hpf Urine RBC (Auto) (0-4) /hpf U Hyaline Cast (Auto) (0-5) /lpf U Epithel Cells (Auto) (0-5) /lpf Urine Bacteria (Auto) (Negative) Ur Renal Epithelial Cell Urine Crystals Calcium Oxalate Crystal (None Prsent) Urine Mucus (None Prsent) Salicylates (3.0-30) mg/dl Urine Opiates Screen (Neg) Ur Methadone, Qual (Neg) Acetaminophen (10-30) ug/ml Urine Barbiturates (Neg) Ur Phencyclidine (PCP) (Neg) U Amphetamin/Meth Scrn (Neg) MDMA (Ecstasy) Screen (Neg) U Benzodiazepines Scrn (Neg) Ur Cocaine Metabolite (Neg) U Marijuana (THC) Screen (Neg) Ethyl Alcohol mg/dL (<10.0) mg/dl Lyme Disease IgG Ab (Negative) SARS-CoV-2, RNA, NAAT (NEGATIVE) 03/14/22 03/14/22 03/14/22 Range/Units 13:53 13:53 13:55 WBC (4.8-10.8) K/uL RBC (4.7-6.1) M/uL Hgb (14.0-18.0) g/dL POC Hgb (14.0-18.0) g/dl Hct (42-52) % POC Hct (42-52) % MCV (80-100) fL MCH (25-34) pg MCHC (32-36) g/dL RDW Std Deviation (36.4-46.3) fL RDW Coeff of Jareth (11.5-14.5) % Plt Count (130-400) K/uL MPV (7.4-10.4) fL Immature Gran % (Auto) % Neut % (Auto) % Lymph % (Auto) % [place] % (Auto) % Eos % (Auto) % Baso % (Auto) % Neut # (Auto) (1.4-6.5) K/uL Lymph # (Auto) (1.2-3.4) K/uL [place] # (Auto) (0.11-0.59) K/uL Eos # (Auto) (0-0.5) K/uL Baso # (Auto) (0-0.2) K/uL Immature Gran # (Auto) (0.00-0.02) K/uL POC Sodium (135-144) mmol/L Sodium (136-145) mmol/L POC Potassium (3.3-5.0) mmol/L Potassium (3.5-5.1) mmol/L POC Chloride (101-112) mmol/L Chloride (98-107) mmol/L Carbon Dioxide (21-32) mmol/L POC Total CO2 (24-31) mmol/L Anion Gap (3-11) POC Anion Gap (16-25) mmol/L POC BUN (7-18) mg/dl BUN (6-23) mg/dl Creatinine (0.6-1.4) mg/dl POC Creatinine (0.6-1.3) mg/dl Est Cr Clr Drug Dosing ml/min Est GFR ( Amer) ml/min Est GFR (Non-Af Amer) ml/min BUN/Creatinine Ratio (10-20) Glucose (70-99(Fasting)) mg/dl POC Glucose (other) (70-99) mg/dl Lactate (0.4-2.0) mmol/L Calcium (8.5-10.1) mg/dl POC Ioniz Calcium Mai (1.12-1.32) mmol/l Magnesium (1.7-2.4) mg/dl Total Bilirubin (0.2-1.0) mg/dl AST (13-39) U/L ALT (7-52) U/L Alkaline Phosphatase (34-104) U/L Total Creatine Kinase (30-223) U/L Troponin I High Sens (0-20) pg/ml Total Protein (6.0-8.3) gm/dl Albumin (3.4-5.0) gm/dl Globulin (2.5-4.0) gm/dl Albumin/Globulin Ratio (0.9-2) Procalcitonin < 0.05 (0-0.5) ng/ml TSH (0.300-4.500) uIu/ml Urine Color Urine Appearance (Clear) Urine pH (4.5-7.5) Ur Specific [place] (1.000-1.030) Urine Protein (Negative) Urine Glucose (UA) (Negative) Urine Ketones (Negative) Urine Blood (Negative) Urine Nitrite (Negative) Urine Bilirubin (Negative) Urine Urobilinogen (Negative) Ur Leukocyte Esterase (Negative) Urine WBC (Auto) (0-5) /hpf Urine RBC (Auto) (0-4) /hpf U Hyaline Cast (Auto) (0-5) /lpf U Epithel Cells (Auto) (0-5) /lpf Urine Bacteria (Auto) (Negative) Ur Renal Epithelial Cell Urine Crystals Calcium Oxalate Crystal (None Prsent) Urine Mucus (None Prsent) Salicylates (3.0-30) mg/dl Urine Opiates Screen (Neg) Ur Methadone, Qual (Neg) Acetaminophen (10-30) ug/ml Urine Barbiturates (Neg) Ur Phencyclidine (PCP) (Neg) U Amphetamin/Meth Scrn (Neg) MDMA (Ecstasy) Screen (Neg) U Benzodiazepines Scrn (Neg) Ur Cocaine Metabolite (Neg) U Marijuana (THC) Screen (Neg) Ethyl Alcohol mg/dL (<10.0) mg/dl Lyme Disease IgG Ab Negative (Negative) SARS-CoV-2, RNA, NAAT NEGATIVE (NEGATIVE) 03/14/22 03/14/22 03/14/22 Range/Units 13:57 14:03 14:03 WBC (4.8-10.8) K/uL RBC (4.7-6.1) M/uL Hgb (14.0-18.0) g/dL POC Hgb 16.3 (14.0-18.0) g/dl Hct (42-52) % POC Hct 48 (42-52) % MCV (80-100) fL MCH (25-34) pg MCHC (32-36) g/dL RDW Std Deviation (36.4-46.3) fL RDW Coeff of Jareth (11.5-14.5) % Plt Count (130-400) K/uL MPV (7.4-10.4) fL Immature Gran % (Auto) % Neut % (Auto) % Lymph % (Auto) % [place] % (Auto) % Eos % (Auto) % Baso % (Auto) % Neut # (Auto) (1.4-6.5) K/uL Lymph # (Auto) (1.2-3.4) K/uL [place] # (Auto) (0.11-0.59) K/uL Eos # (Auto) (0-0.5) K/uL Baso # (Auto) (0-0.2) K/uL Immature Gran # (Auto) (0.00-0.02) K/uL POC Sodium 141 (135-144) mmol/L Sodium (136-145) mmol/L POC Potassium 5.1 H (3.3-5.0) mmol/L Potassium (3.5-5.1) mmol/L POC Chloride 100 L (101-112) mmol/L Chloride (98-107) mmol/L Carbon Dioxide (21-32) mmol/L POC Total CO2 28 (24-31) mmol/L Anion Gap (3-11) POC Anion Gap 20.0 (16-25) mmol/L POC BUN 16 (7-18) mg/dl BUN (6-23) mg/dl Creatinine (0.6-1.4) mg/dl POC Creatinine 1.2 (0.6-1.3) mg/dl Est Cr Clr Drug Dosing ml/min Est GFR ( Amer) ml/min Est GFR (Non-Af Amer) ml/min BUN/Creatinine Ratio (10-20) Glucose (70-99(Fasting)) mg/dl POC Glucose (other) 114 H (70-99) mg/dl Lactate (0.4-2.0) mmol/L Calcium (8.5-10.1) mg/dl POC Ioniz Calcium Mai 1.26 (1.12-1.32) mmol/l Magnesium (1.7-2.4) mg/dl Total Bilirubin (0.2-1.0) mg/dl AST (13-39) U/L ALT (7-52) U/L Alkaline Phosphatase (34-104) U/L Total Creatine Kinase (30-223) U/L Troponin I High Sens (0-20) pg/ml Total Protein (6.0-8.3) gm/dl Albumin (3.4-5.0) gm/dl Globulin (2.5-4.0) gm/dl Albumin/Globulin Ratio (0.9-2) Procalcitonin (0-0.5) ng/ml TSH (0.300-4.500) uIu/ml Urine Color Walker Urine Appearance Cloudy A (Clear) Urine pH 5.5 (4.5-7.5) Ur Specific [place] 1.027 (1.000-1.030) Urine Protein 2+ H (Negative) Urine Glucose (UA) Negative (Negative) Urine Ketones 1+ H (Negative) Urine Blood 1+ H (Negative) Urine Nitrite Positive A (Negative) Urine Bilirubin 2+ H (Negative) Urine Urobilinogen Negative (Negative) Ur Leukocyte Esterase Trace H (Negative) Urine WBC (Auto) 5-10 H (0-5) /hpf Urine RBC (Auto) 5-10 H (0-4) /hpf U Hyaline Cast (Auto) 5-10 H (0-5) /lpf U Epithel Cells (Auto) >30 H (0-5) /lpf Urine Bacteria (Auto) 1+ H (Negative) Ur Renal Epithelial Cell Not Reportable Urine Crystals Not Reportable Calcium Oxalate Crystal Present A (None Prsent) Urine Mucus Present A (None Prsent) Salicylates (3.0-30) mg/dl Urine Opiates Screen Neg (Neg) Ur Methadone, Qual Neg (Neg) Acetaminophen (10-30) ug/ml Urine Barbiturates Neg (Neg) Ur Phencyclidine (PCP) Neg (Neg) U Amphetamin/Meth Scrn Neg (Neg) MDMA (Ecstasy) Screen Neg (Neg) U Benzodiazepines Scrn Neg (Neg) Ur Cocaine Metabolite Neg (Neg) U Marijuana (THC) Screen Neg (Neg) Ethyl Alcohol mg/dL (<10.0) mg/dl Lyme Disease IgG Ab (Negative) SARS-CoV-2, RNA, NAAT (NEGATIVE) 03/14/22 03/14/22 03/14/22 Range/Units 15:24 15:24 15:27 WBC (4.8-10.8) K/uL RBC (4.7-6.1) M/uL Hgb (14.0-18.0) g/dL POC Hgb (14.0-18.0) g/dl Hct (42-52) % POC Hct (42-52) % MCV (80-100) fL MCH (25-34) pg MCHC (32-36) g/dL RDW Std Deviation (36.4-46.3) fL RDW Coeff of Jareth (11.5-14.5) % Plt Count (130-400) K/uL MPV (7.4-10.4) fL Immature Gran % (Auto) % Neut % (Auto) % Lymph % (Auto) % [place] % (Auto) % Eos % (Auto) % Baso % (Auto) % Neut # (Auto) (1.4-6.5) K/uL Lymph # (Auto) (1.2-3.4) K/uL [place] # (Auto) (0.11-0.59) K/uL Eos # (Auto) (0-0.5) K/uL Baso # (Auto) (0-0.2) K/uL Immature Gran # (Auto) (0.00-0.02) K/uL POC Sodium (135-144) mmol/L Sodium (136-145) mmol/L POC Potassium (3.3-5.0) mmol/L Potassium (3.5-5.1) mmol/L POC Chloride (101-112) mmol/L Chloride (98-107) mmol/L Carbon Dioxide (21-32) mmol/L POC Total CO2 (24-31) mmol/L Anion Gap (3-11) POC Anion Gap (16-25) mmol/L POC BUN (7-18) mg/dl BUN (6-23) mg/dl Creatinine (0.6-1.4) mg/dl POC Creatinine (0.6-1.3) mg/dl Est Cr Clr Drug Dosing ml/min Est GFR ( Amer) ml/min Est GFR (Non-Af Amer) ml/min BUN/Creatinine Ratio (10-20) Glucose (70-99(Fasting)) mg/dl POC Glucose (other) (70-99) mg/dl Lactate 0.5 (0.4-2.0) mmol/L Calcium (8.5-10.1) mg/dl POC Ioniz Calcium Mai (1.12-1.32) mmol/l Magnesium (1.7-2.4) mg/dl Total Bilirubin (0.2-1.0) mg/dl AST (13-39) U/L ALT (7-52) U/L Alkaline Phosphatase (34-104) U/L Total Creatine Kinase (30-223) U/L Troponin I High Sens (0-20) pg/ml Total Protein (6.0-8.3) gm/dl Albumin (3.4-5.0) gm/dl Globulin (2.5-4.0) gm/dl Albumin/Globulin Ratio (0.9-2) Procalcitonin (0-0.5) ng/ml TSH (0.300-4.500) uIu/ml Urine Color Urine Appearance (Clear) Urine pH (4.5-7.5) Ur Specific [place] (1.000-1.030) Urine Protein (Negative) Urine Glucose (UA) (Negative) Urine Ketones (Negative) Urine Blood (Negative) Urine Nitrite (Negative) Urine Bilirubin (Negative) Urine Urobilinogen (Negative) Ur Leukocyte Esterase (Negative) Urine WBC (Auto) (0-5) /hpf Urine RBC (Auto) (0-4) /hpf U Hyaline Cast (Auto) (0-5) /lpf U Epithel Cells (Auto) (0-5) /lpf Urine Bacteria (Auto) (Negative) Ur Renal Epithelial Cell Urine Crystals Calcium Oxalate Crystal (None Prsent) Urine Mucus (None Prsent) Salicylates < 3.0 L (3.0-30) mg/dl Urine Opiates Screen (Neg) Ur Methadone, Qual (Neg) Acetaminophen < 3 L (10-30) ug/ml Urine Barbiturates (Neg) Ur Phencyclidine (PCP) (Neg) U Amphetamin/Meth Scrn (Neg) MDMA (Ecstasy) Screen (Neg) U Benzodiazepines Scrn (Neg) Ur Cocaine Metabolite (Neg) U Marijuana (THC) Screen (Neg) Ethyl Alcohol mg/dL < 10.0 (<10.0) mg/dl Lyme Disease IgG Ab (Negative) SARS-CoV-2, RNA, NAAT (NEGATIVE) Administered Medications Discontinued Medications Ceftriaxone Sodium (Ceftriaxone Sodium 2000mg/70ml D5w) Confirm Administered Dose 2,000 mg IV .STK-MED ONE Stop: 03/14/22 14:20 Last Admin: 03/14/22 14:39 Dose: 2,000 mg Documented by: [id number] Ceftriaxone Sodium (Ceftriaxone Sodium 2000mg/70ml D5w) 2,000 mg IV NOW ONE Stop: 03/14/22 14:31 Last Admin: 03/14/22 14:39 Dose: Not Given Documented by: [id number] Escitalopram Oxalate (Escitalopram Oxalate 10 Mg Tab) 10 mg PO DAILY [facility] Stop: 04/14/22 08:59 Last Admin: 03/15/22 08:22 Dose: 10 mg Documented by: [id number] Fentanyl Citrate (Fentanyl Citrate 100 Mcg/2 Ml Vial) Confirm Administered Dose 100 mcg .ROUTE .STK-MED ONE Stop: 03/14/22 14:59 Last Increment: 03/14/22 15:07 Dose: 50 mcg Documented by: [id number] Fentanyl Citrate (Fentanyl Citrate 100 Mcg/2 Ml Vial) 50 mcg IV NOW ONE Stop: 03/14/22 15:08 Last Admin: 03/14/22 15:10 Dose: Not Given Documented by: [id number] Propofol (Diprivan) 1,000 mg in 100 mls @ 0 mls/hr IV .Q0M [facility]; Protocol Stop: 03/17/22 13:59 Last Titration: 03/15/22 01:20 Dose: 0 mcg/kg/min, 0 mls/hr Documented by: [id number] Titration: 03/14/22 16:11 Dose: 0 mcg/kg/min, 0 mls/hr Documented by: [id number] Titration: 03/14/22 16:03 Dose: 15 mcg/kg/min, 7.4 mls/hr Documented by: [id number] Titration: 03/14/22 15:50 Dose: 20 mcg/kg/min, 9.8 mls/hr Documented by: [id number] Titration: 03/14/22 14:36 Dose: 25 mcg/kg/min, 12.3 mls/hr Documented by: [id number] Titration: 03/14/22 14:35 Dose: 25 mcg/kg/min, 12.3 mls/hr Documented by: [id number] Admin: 03/14/22 14:00 Dose: 20 mcg/kg/min, 9.8 mls/hr Documented by: [id number] Cosigned by: [id number] Sodium Chloride (Nss 1000ml) 2,000 mls @ 999 mls/hr IV .Q2H1M ONE Stop: 03/14/22 15:57 Last Infusion: 03/14/22 17:44 Dose: 0 mls/hr Documented by: [id number] Admin: 03/14/22 13:45 Dose: 999 mls/hr Documented by: [id number] Metronidazole (Flagyl) 500 mg in 100 mls @ 100 mls/hr IV NOW ONE Stop: 03/14/22 15:14 Last Infusion: 03/14/22 17:44 Dose: 0 mls/hr Documented by: [id number] Admin: 03/14/22 14:46 Dose: 100 mls/hr Documented by: [id number] Magnesium Sulfate/Dextrose (Magnesium Sulfate / D5w) 1 gm in 100 mls @ 50 mls/hr IV Q2H ALIA Stop: 03/15/22 01:59 Last Infusion: 03/15/22 02:35 Dose: 0 mls/hr Documented by: [id number] Admin: 03/15/22 00:33 Dose: 50 mls/hr Documented by: [id number] Infusion: 03/15/22 00:33 Dose: 50 mls/hr Documented by: [id number] Admin: 03/14/22 22:35 Dose: 50 mls/hr Documented by: [id number] Infusion: 03/14/22 22:35 Dose: 50 mls/hr Documented by: [id number] Admin: 03/14/22 20:40 Dose: 50 mls/hr Documented by: [id number] Ioversol (Optiray 320 100ml) 93 ml IV ONCE ONE Stop: 03/14/22 14:22 Last Admin: 03/14/22 14:29 Dose: 93 ml Documented by: [id number] Miscellaneous (Rapid Sequence Induction Bag) Confirm Administered Dose 1 ea .ROUTE .STK-MED ONE Stop: 03/14/22 13:42 Last Admin: 03/14/22 14:27 Dose: 1 ea Documented by: [id number] Propofol (Propofol Iv Emulsion 10 Mg/Ml 100 Ml Vial) Confirm Administered Dose 1,000 mg IV .STK-MED ONE Stop: 03/14/22 13:54 Last Admin: 03/14/22 14:18 Dose: Not Given Documented by: [id number] Propofol (Propofol Bolus From Bag) 20 mg IV Q5M PRN PRN Reason: Sedation Stop: 03/17/22 13:56 Last Admin: 03/14/22 14:07 Dose: 20 mg Documented by: [id number] Cosigned by: [id number] Imaging Data Radiologist's Impression: Chest CT 03/14/22 14:05 CT OF THE CHEST WITH IV CONTRAST CLINICAL HISTORY: eval for aspiration: unresponsive COMPARISON STUDY: Chest radiograph performed earlier today. TECHNIQUE: Following IV administration of 93 mL of Optiray, helical axial images of the chest were obtained. Sagittal and coronal reconstructions were viewed as well as maximal intensity projections on an independent 3-D workstation. Automated exposure control was utilized for the study. A dose lowering technique was utilized adhering to the principles of ALARA. CT DOSE: 1043.04 mGy.cm FINDINGS: Endotracheal and nasogastric tubes are in place. No thoracic aortic dissection is present. Pulmonary arteries are suboptimally opacified but there is no central pulmonary embolus. There is borderline cardiomegaly. No enlarged thoracic lymph nodes are present. There is no pneumothorax or pleural effusion. There are mild alveolar opacities within the left lung. There is no cavitation. Central airways are patent. No acute fracture is identified within visualized portions of the thorax. Mild splenomegaly is noted. IMPRESSION: 1. Mild airspace opacities within the left lung which favor an infectious process. Aspiration pneumonitis is also within the differential. 2. No pneumothorax. 3. Borderline cardiomegaly. 4. Mild splenomegaly. ACT 112: Negative or not required by law. Electronically signed by: Rc Oshea M.D. 03/14/2022 2:[address] 03/14/22 14:05 CT OF THE HEAD WITHOUT CONTRAST CLINICAL HISTORY: unresponsive COMPARISON STUDY: No previous studies for comparison. TECHNIQUE: Helical axial images of the head were obtained without IV contrast. Automated exposure control was utilized for the study. A dose lowering technique was utilized adhering to the principles of ALARA. FINDINGS: No acute intracranial hemorrhage, midline shift or mass effect is present. The ventricular system is unremarkable. The basal cisterns are patent. No extra-axial collections are present. There are no findings to suggest acute dural sinus thrombosis or acute territorial infarct. No significant calvarial abnormalities are present. Fluid within the nasopharynx is likely related to intubation. Minimal ethmoid sinus mucosal thickening is present. IMPRESSION: 1. No acute intracranial findings. 2. No acute calvarial fracture. ACT 112: Negative or not required by law. Electronically signed by: Rc Oshea M.D. 03/14/2022 2:36 PM Chest X-Ray 03/14/22 14:08 XR chest 1V portable supine CLINICAL HISTORY: post intubation COMPARISON STUDY: No previous studies for comparison. FINDINGS: Tip of endotracheal tube is 7.5 cm above the meri. Tip of nasogastric tube is within the gastric cardia. Enlargement of the cardiac silhouette may be technical. No pneumothorax is identified on supine exam. Lungs are clear. Pulmonary vascularity is normal. IMPRESSION: 1. Tip of endotracheal tube 7.5 cm above the meri. The tube could be advanced 2 cm. 2. Tip of nasogastric tube within the gastric cardia. Tip could be advanced 5 cm. 3. Enlargement of the cardiac silhouette, likely technical. ACT 112: Negative or not required by law. Electronically signed by: Rc Oshea M.D. 03/14/2022 2:16 PM Discharge Plan Visit Data Chief Complaint: Unresponsive ED Provider: Susan Lux Discharge Problem: Unresponsiveness, Aspiration into airway, Atrial fibrillation with rapid ventricular response, Hypothermia Patient Disposition: Admitted As Inpatient Discharge Instructions Interventions: ED Discharge Assessment Last Done: 03/14/22 18:48
[2022-03-14 19:08] LABS: BUN Creatinine Ratio 17.4 (10-20); Creatinine Clr Calc Pharmacy 123.4 ml/min; Est GFR (African American) 130.7 ml/min; Est GFR (Non-African American) 112.8 ml/min; Potassium 3.9 mmol/L (3.5-5.1)
[2022-03-14] MEDS ORDERED: ACETAMINOPHEN 325 MG TAB PO PRN (19:54)
[2022-03-14] MEDS: MAGNESIUM SULFATE / D5W 1 GM/100 ML BAG IV SCH ×2 (20:40→22:35)
[2022-03-14 22:24] LABS: Appearance Urine Clear (Clear); Bacteria Urine Automated Negative (Negative); Bilirubin Urine Negative (Negative); Blood Urine 2+ (Negative); Color Urine Yellow; Epithelial Cell Urine Auto 20-30 /lpf (0-5); Glucose Urine UA Negative (Negative); Ketones Urine Negative (Negative); Leukocyte Esterase Urine Trace (Negative); Nitrite Urine Negative (Negative); Protein Urine Negative (Negative); RBC Urine Automated >30 /hpf (0-4); Specific Gravity Urine 1.032 (1.000-1.030); Urobilinogen Urine Negative (Negative)
[2022-03-15] MEDS: MAGNESIUM SULFATE / D5W 1 GM/100 ML BAG IV SCH (00:33)
[2022-03-15 07:23] LABS: Basophils # (auto) 0.01 K/uL (0-0.2); Basophils % (auto) 0.1 %; Eosinophils # (auto) 0.03 K/uL (0-0.5); Eosinophils % (auto) 0.4 %; Hemoglobin 14.8 g/dL (14.0-18.0); Immature Granulocytes # (auto) 0.01 K/uL (0.00-0.02); Immature Granulocytes % (auto) 0.1 %; Lymphocytes # (auto) 1.62 K/uL (1.2-3.4); Mean Corpuscular Hemoglobin 31.2 pg (25-34); Mean Corpuscular Hgb Conc 35.2 g/dL (32-36); Mean Corpuscular Volume 88.4 fL (80-100); Mean Platelet Volume 10.8 fL (7.4-10.4); Monocytes # (auto) 0.43 K/uL (0.11-0.59); Monocytes % (auto) 6.4 %; Neutrophils # (auto) 4.66 K/uL (1.4-6.5); Platelet Count 146 K/uL (130-400); RDW Coefficient of Variation 12.6 % (11.5-14.5); RDW Standard Deviation 40.4 fL (36.4-46.3); Red Blood Count 4.75 M/uL (4.7-6.1); White Blood Count 6.76 K/uL (4.8-10.8)
[2022-03-15 08:18] LABS: BUN Creatinine Ratio 13.3 (10-20); Calcium 9.1 mg/dl (8.5-10.1); Creatinine Clr Calc Pharmacy 134.1 ml/min; Est GFR (African American) 134.2 ml/min; Est GFR (Non-African American) 115.8 ml/min; Magnesium 2.1 mg/dl (1.7-2.4); Potassium 3.9 mmol/L (3.5-5.1)
[2022-03-15] MEDS ORDERED: ESCITALOPRAM OXALATE 10 MG TAB PO SCH (09:00)
--- NOTE | 2022-03-15 11:14 | XCELERA ---
[id number]
--- NOTE | 2022-03-15 15:05 | Cardiology Consultation ---
Date of Consultation March 15, 2022 Assessment & Plan (1) Paroxysmal atrial fibrillation: (2) Unresponsiveness: (3) Cardiomegaly: ASSESSMENT/PLAN: 1. Unresponsiveness: Highly doubt malignant arrhythmia given the fact that he has no recollection of the events while running several blocks until where he was found. He also did not have a true syncopal event where he collapsed to the ground but based on the fact that he was found on a bench, must have at least lowered himself to the bench with some purposeful intention. Also, he remained unresponsive despite being found with a heart rate in the 40s per report, but full ER documentation is not yet available from presentation. Atrial fibrillation would not be expected to cause such an event. It is possible that he had some form of heat exhaustion and with vomiting, vasovagal reaction which would lower his heart rate and blood pressure with loss of consciousness. Given lack of details, could consider outpatient monitoring such as loop recorder versus event monitor. Will discuss with electrophysiology colleagues about loop recorder given that this has not been a recurrent process. Consider further neurologic evaluation if felt to be prudent by the hospitalist service. 2. Atrial fibrillation: Underwent cardioversion in the emergency department per report. Has been in sinus rhythm during hospital stay and during the consultation. Chads Vasc score is 0. Outpatient monitoring as above. It is possible that AFib occurred as a result of yesterday's event. Also, it is not clear if he was found with a heart rate in the 40s if he received medications such as atropine, which may have contributed to AFib. No medical treatment at this time, unless recurrence. 3. Cardiomegaly: LV was mildly dilated, which may be related to his long distance running. Otherwise, no cardiac symptoms or structural abnormalities no angie. 4. Disposition: Will discuss potential loop recorder with electrophysiology. If loop recorder is not pursued, can arrange outpatient event monitor. Patient care discussed with Dr. Muniz of the primary hospitalist service. Thank you for allowing me to participate in the care of your patient. Please call for any other questions or concerns. Sincerely, Foreign Álvarez M.D. History of Present Illness Reason for Consultation: Syncope Requesting Physician: Angel Muniz DO Attending Physician: Angel Muniz DO History of Present Illness Mr. Peng is a very pleasant 26-year-old gentleman who was admitted on 03/14/2022 after being found unresponsive. He went for a run, which is usual for him, on 03/14/2022 at approximately 11:30 a.m.. It was hot outside and due to the heat, he decided to run a shorter route. He typically runs 4 or 6 miles but on this particular day planned for the 4 mile route.. At approximately noon, he was on [facility] but he was eventually found on a park bench on [facility], unresponsive. The only thing he remembers was vomiting, but he does not necessarily recall exactly where he was when he vomited. According to the admission documentation, a local business person dumped water on him and there was no response and therefore summoned EMS. He was nasally intubated at approximately 1:40 p.m.. He then s pontaneously awakened and was extubated at 2:00 p.m.. He was noted to be in atrial fibrillation and was cardioverted. Apparently he was initially found to be bradycardic in the 40s by EMS but details are not known and it is unclear if he received medical therapy such as atropine. Awaiting emergency department documentation. He typically runs once or twice per week and tolerates it well. He states that he believed he was dehydrated. He does not recall any history of cardiac issues such as atrial fibrillation. He has not had syncope in the past. In the ninth grade he was having palpitations and his dad found him laying down at 1 point and diaphoretic and he was taken for evaluation without specific diagnosis. He is currently back to his baseline in his hospital room, with his friend, Grover, at the bedside. He denies any chest pain, shortness of breath, palpitations, lightheadedness, edema, or bleeding. He has no recollection of yesterday's events from approximately noon until 3 or 3:30 p.m. after he was in the hospital. Review of systems: As above. Review of systems otherwise negative/unremarkable. Family history: No known premature CAD. Paternal grandfather in his 40s with liver disease but was an alcoholic. Social history: He denies tobacco abuse, alcohol abuse. Smokes marijuana occasionally but did not use marijuana the day or preceding day of presentation. 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 He is originally from [place]. Grover (identified as a friend and roommate) was at the bedside. Allergies Allergy/AdvReac Type Severity Reaction Status Date / Time No Known Allergies Allergy Unverified 03/14/22 16:40 Home Medications Medication Instructions Recorded Confirmed Type emtricitabine 200 mg-tenofovir 1 tab PO DAILY 03/14/22 03/14/22 History disoproxil fumarate 300 mg tablet escitalopram oxalate 10 mg tablet 10 mg PO DAILY 03/14/22 03/14/22 History Patient History Medical History (Updated 03/15/22 @ 15:35 by Dayo Álvarez MD) Afib Aspiration pneumonitis Depression Hypomagnesemia Family History (Updated 03/14/22 @ 17:45 by MITCH Fernandes) Denies family history of Diabetes Coronary heart disease Dyslipidemia Depression Heart disease Kidney disease COPD (chronic obstructive pulmonary disease) Hypertension Stroke Social History (Updated 03/14/22 @ 17:43 by MITCH Fernandes) Smoking Status: Never smoker Hx Alcohol Use: No Hx Substance Use: Yes (uses a few times a week) Preferred Language: Telugu Rug [employer]ovator Required: No Beliefs That Will Affect Care: None Current Living Situation: Other Current Living Situation Comment: lives with friends Feels Safe at Home: Yes Safety Concerns: Feels Safe At This Time Assistive Devices: None Physical Exam Physical Exam: Gen.: No acute distress. Alert and oriented. HEENT: Anicteric sclera. Neck: No JVD. No bruits. Normal carotid upstrokes bilaterally. Cardiac: PMI was nondisplaced. No ventricular heave. Regular. Normal S1-S2. No murmurs, rubs, or gallops. Pulmonary: Clear to auscultation bilaterally without wheezes, rales, or rhonchi. Abdomen: Soft, nontender, nondistended, with normoactive bowel sounds. No bruits noted. Extremities: 2+ radial pulses bilaterally. 2+ posterior tibialis pulses bilaterally. No edema or cyanosis. Psychiatric: Affect appears appropriate. Results & Data ([facility]) Vital Signs (Past 12 Hours) Vital Signs Temp Pulse Pulse Resp BP Pulse Ox 03/15/22 11:18 36.8 C 101 H 16 121/74 96 03/15/22 07:42 37.0 C 87 18 127/80 97 03/15/22 07:00 78 03/15/22 04:33 36.8 C 03/15/22 04:26 82 17 120/69 98 Laboratory Results Laboratory Results - last 24 hr 03/14/22 03/14/22 03/14/22 13:53 13:53 15:24 WBC RBC Hgb Hct MCV MCH MCHC RDW Std Deviation RDW Coeff of Jareth Plt Count MPV Immature Gran % (Auto) Neut % (Auto) Lymph % (Auto) Long % (Auto) Eos % (Auto) Baso % (Auto) Neut # (Auto) Lymph # (Auto) Long # (Auto) Eos # (Auto) Baso # (Auto) Immature Gran # (Auto) Sodium Potassium Chloride Carbon Dioxide Anion Gap BUN Creatinine Est Cr Clr Drug Dosing Est GFR ( Amer) Est GFR (Non-Af Amer) BUN/Creatinine Ratio Glucose Lactate Calcium Magnesium Procalcitonin < 0.05 Cortisol AM Sample Urine Color Urine Appearance Urine pH Ur Specific [place] Urine Protein Urine Glucose (UA) Urine Ketones Urine Blood Urine Nitrite Urine Bilirubin Urine Urobilinogen Ur Leukocyte Esterase Urine WBC (Auto) Urine RBC (Auto) U Hyaline Cast (Auto) U Epithel Cells (Auto) Urine Bacteria (Auto) Salicylates < 3.0 L Acetaminophen < 3 L Ethyl Alcohol mg/dL Lyme Disease IgG Ab Negative 03/14/22 03/14/22 03/14/22 15:24 15:27 18:43 WBC RBC Hgb Hct MCV MCH MCHC RDW Std Deviation RDW Coeff of Jareth Plt Count MPV Immature Gran % (Auto) Neut % (Auto) Lymph % (Auto) Long % (Auto) Eos % (Auto) Baso % (Auto) Neut # (Auto) Lymph # (Auto) Long # (Auto) Eos # (Auto) Baso # (Auto) Immature Gran # (Auto) Sodium 141 Potassium 3.9 D Chloride 104 Carbon Dioxide 27 Anion Gap 10 BUN 16 Creatinine 0.92 Est Cr Clr Drug Dosing 123.4 Est GFR ( Amer) 130.7 Est GFR (Non-Af Amer) 112.8 BUN/Creatinine Ratio 17.4 Glucose 104 H Lactate 0.5 Calcium 9.0 Magnesium Procalcitonin Cortisol AM Sample Urine Color Urine Appearance Urine pH Ur Specific [place] Urine Protein Urine Glucose (UA) Urine Ketones Urine Blood Urine Nitrite Urine Bilirubin Urine Urobilinogen Ur Leukocyte Esterase Urine WBC (Auto) Urine RBC (Auto) U Hyaline Cast (Auto) U Epithel Cells (Auto) Urine Bacteria (Auto) Salicylates Acetaminophen Ethyl Alcohol mg/dL < 10.0 Lyme Disease IgG Ab 03/14/22 03/15/22 03/15/22 22:00 07:04 07:04 WBC 6.76 RBC 4.75 Hgb 14.8 Hct 42.0 MCV 88.4 MCH 31.2 MCHC 35.2 RDW Std Deviation 40.4 RDW Coeff of Jareth 12.6 Plt Count 146 MPV 10.8 H Immature Gran % (Auto) 0.1 Neut % (Auto) 69.0 Lymph % (Auto) 24.0 Long % (Auto) 6.4 Eos % (Auto) 0.4 Baso % (Auto) 0.1 Neut # (Auto) 4.66 Lymph # (Auto) 1.62 Long # (Auto) 0.43 Eos # (Auto) 0.03 Baso # (Auto) 0.01 Immature Gran # (Auto) 0.01 Sodium 139 Potassium 3.9 Chloride 102 Carbon Dioxide 31 Anion Gap 6 BUN 12 Creatinine 0.90 Est Cr Clr Drug Dosing 134.1 Est GFR ( Amer) 134.2 Est GFR (Non-Af Amer) 115.8 BUN/Creatinine Ratio 13.3 Glucose 103 H Lactate Calcium 9.1 Magnesium 2.1 Procalcitonin Cortisol AM Sample Urine Color Yellow Urine Appearance Clear Urine pH 8.0 H Ur Specific [place] 1.032 H Urine Protein Negative Urine Glucose (UA) Negative Urine Ketones Negative Urine Blood 2+ H Urine Nitrite Negative Urine Bilirubin Negative Urine Urobilinogen Negative Ur Leukocyte Esterase Trace H Urine WBC (Auto) 10-30 H Urine RBC (Auto) >30 H U Hyaline Cast (Auto) 1-5 U Epithel Cells (Auto) 20-30 H Urine Bacteria (Auto) Negative Salicylates Acetaminophen Ethyl Alcohol mg/dL Lyme Disease IgG Ab 03/15/22 07:04 WBC RBC Hgb Hct MCV MCH MCHC RDW Std Deviation RDW Coeff of Jareth Plt Count MPV Immature Gran % (Auto) Neut % (Auto) Lymph % (Auto) Long % (Auto) Eos % (Auto) Baso % (Auto) Neut # (Auto) Lymph # (Auto) Long # (Auto) Eos # (Auto) Baso # (Auto) Immature Gran # (Auto) Sodium Potassium Chloride Carbon Dioxide Anion Gap BUN Creatinine Est Cr Clr Drug Dosing Est GFR ( Amer) Est GFR (Non-Af Amer) BUN/Creatinine Ratio Glucose Lactate Calcium Magnesium Procalcitonin Cortisol AM Sample 14.35 Urine Color Urine Appearance Urine pH Ur Specific [place] Urine Protein Urine Glucose (UA) Urine Ketones Urine Blood Urine Nitrite Urine Bilirubin Urine Urobilinogen Ur Leukocyte Esterase Urine WBC (Auto) Urine RBC (Auto) U Hyaline Cast (Auto) U Epithel Cells (Auto) Urine Bacteria (Auto) Salicylates Acetaminophen Ethyl Alcohol mg/dL Lyme Disease IgG Ab Diagnostic Findings Telemetry personally reviewed: Sinus rhythm. No arrhythmia. Echo 03/15/2022: Mild LV dilation with normal wall motion and systolic function. EF 55-60%. No significant diastolic dysfunction. No significant valvular abnormality. Borderline dilated aortic root for age adjusted BSA. ECGs personally reviewed: ECG 03/14/2022 at 3:03 p.m.: Sinus rhythm 67 beats per minute. Normal ECG. ECG 03/14/2022 at 6:03 p.m.: Sinus rhythm 87 beats per minute. Normal ECG. ECG 03/14/2022 at 1:46 p.m.: AFib with RVR 129 beats per minute. ECG 03/15/2022: Sinus rhythm 72 beats per minute. Normal ECG. Head CT 03/14/2022: No acute intracranial findings. Chest CTA 03/14/2022: Mild airspace opacities left lung favor infectious process per Radiology. Aspiration pneumonitis in the differential. No pneumothorax. No aortic dissection. No obvious PE per Radiology. Medications Administered Current Inpatient Medications Acetaminophen (Acetaminophen 325 Mg Tab) 650 mg PO Q4H PRN PRN Reason: Pain or Fever Stop: 04/13/22 19:53 Escitalopram Oxalate (Escitalopram Oxalate 10 Mg Tab) 10 mg PO DAILY [facility] Stop: 04/14/22 08:59 Last Admin: 03/15/22 08:22 Dose: 10 mg Documented by: PG Care Time/CCT Total # of Minutes Spent Total Time Spent with Patient: Total time spent is greater than 50% in coordination of care (as documented) at patient's floor/unit and/or counseling patient: Coding Level of Care Code 83095 Inpt Consult Level 4 Diagnoses Paroxysmal atrial fibrillation I48.0 Unresponsiveness R41.89 Cardiomegaly I51.7
--- NOTE | 2022-03-15 15:23 | Discharge Summary ---
Date of Service March 15, 2022 Admission HPI Per Admitting Provider 26 YOM with history of: Depression, takes emtricitabine-tenofovir for prep. Patient was brought in by EMS today for being found on park bench not responsive. The patient was nasally intubated initially by EMD for obtundation on arrival around 1340. He spontaneously awoken and was then extubated 1400. He was also cardioverted in the EMD for HR of 127 following being bradycardic via EMS in the 40s. Also was hypothermic on arrival which has resolved. Patient is currently awake and hemodynamically stable without deficits. Patient has no recollection of the events. Patient states he got up this morning and went for a run, unsure if he ate anything before this. During his run he remembers vomiting on his shoes and possibly not feeling well so sat on a bench. He was discovered by some local business personnel, was unresponsive and did not wake up after they dumped water on him so EMS was called. Patient denies any history of this occurring previously. He runs 2-3 times per week and does weight lifting and other cardiac intensity work outs 3-5 days per week. He denies any workout or pre-work out supplement use. Denies any new medications. Smokes marijuana maybe 1-2 times per month. Takes a Magnesium supplementation. In the EMD the patient had CT scan of head, CT scan of the chest and CXR completed. He was given Rocephin and Flagyl for aspiration pneumonitis. CT scan with borderline cardiac size, and mild opacities. CT scan of the head with mucosal thickening. UA was obtained. Patient will be admitted to PCU follow hemodynamics and telemetry. ECHO in the am. Patient denies any family history of cardiac disease, dysrhythmias or sudden cardiac deaths. COVID test on admission is: NEGATIVE Admission Exam Per Admitting Provider General: awake, alert, no apparent distress Head: Normocephalic, atraumatic ENT: PERRL, EOMI, no pharyngeal exudate, mucous membranes moist Neuro: AAO x 3, speech clear and appropriate, strength intact bilaterally 5/5, sensation intact and equal all extremities and dermatomes, no pronator drift, no cervical pain with palpation/movement Chest: equal rise and fall of the chest, no accessory muscle use, no heaves or thrills, Clear to auscultation, on room air, Cardiac: Regular rate and rhythm, telemetry reviewed, skin warm dry, cap refill <3 seconds, peripheral pulses +2 no JVD, no murmur, no edema GI: NABS x 4 quadrants, soft, nontender to palpation, no rebound, guarding or tenderness : Spontaneously voiding, no pain, no CVA tenderness, Extremities: Normal inspection, no peripheral edema or erythema, calfs nontender to palpation Psych: Normal mood and affect Skin: no rash or erythema Principal Diagnosis heat exhaustion Discharge Exam General: awake, alert, no apparent distress HEENT: NC/AT, PERRL, EOMI, no pharyngeal exudate, mucous membranes moist Respiratory: equal rise and fall of the chest, no accessory muscle use, CTA bilaterally Cardiac: RRR, peripheral pulses +2, no murmur GI: +BS, soft, nontender, nondistended, no guarding. Extremities: Normal inspection, no peripheral edema or erythema, calfs nontender to palpation Psych: Normal mood and affect Skin: no rash or erythema, skin warm dry, cap refill <3 seconds, Neuro: AO x3, speech clear and appropriate, strength intact bilaterally 5/5, sensation intact and equal all extremities and dermatomes Discharge Data Allergies Allergy/AdvReac Type Severity Reaction Status Date / Time No Known Allergies Allergy Unverified 03/14/22 16:40 Consultations 03/14/22 17:44 ED Decision to Admit Stat 03/15/22 10:28 Consult Cardiology Routine Ordered Studies Laboratory Results WBC 6.76 K/uL (4.8-10.8) 03/15/22 07:04 RBC 4.75 M/uL (4.7-6.1) 03/15/22 07:04 Hgb 14.8 g/dL (14.0-18.0) 03/15/22 07:04 POC Hgb 16.3 g/dl (14.0-18.0) 03/14/22 13:57 Hct 42.0 % (42-52) 03/15/22 07:04 POC Hct 48 % (42-52) 03/14/22 13:57 MCV 88.4 fL (80-100) 03/15/22 07:04 MCH 31.2 pg (25-34) 03/15/22 07:04 MCHC 35.2 g/dL (32-36) 03/15/22 07:04 RDW Std Deviation 40.4 fL (36.4-46.3) 03/15/22 07:04 RDW Coeff of Jareth 12.6 % (11.5-14.5) 03/15/22 07:04 Plt Count 146 K/uL (130-400) 03/15/22 07:04 MPV 10.8 fL (7.4-10.4) H 03/15/22 07:04 Immature Gran % (Auto) 0.1 % 03/15/22 07:04 Neut % (Auto) 69.0 % 03/15/22 07:04 Lymph % (Auto) 24.0 % 03/15/22 07:04 Gilliam % (Auto) 6.4 % 03/15/22 07:04 Eos % (Auto) 0.4 % 03/15/22 07:04 Baso % (Auto) 0.1 % 03/15/22 07:04 Neut # (Auto) 4.66 K/uL (1.4-6.5) 03/15/22 07:04 Lymph # (Auto) 1.62 K/uL (1.2-3.4) 03/15/22 07:04 Gilliam # (Auto) 0.43 K/uL (0.11-0.59) 03/15/22 07:04 Eos # (Auto) 0.03 K/uL (0-0.5) 03/15/22 07:04 Baso # (Auto) 0.01 K/uL (0-0.2) 03/15/22 07:04 Immature Gran # (Auto) 0.01 K/uL (0.00-0.02) 03/15/22 07:04 POC Sodium 141 mmol/L (135-144) 03/14/22 13:57 Sodium 139 mmol/L (136-145) 03/15/22 07:04 POC Potassium 5.1 mmol/L (3.3-5.0) H 03/14/22 13:57 Potassium 3.9 mmol/L (3.5-5.1) 03/15/22 07:04 POC Chloride 100 mmol/L (101-112) L 03/14/22 13:57 Chloride 102 mmol/L (98-107) 03/15/22 07:04 Carbon Dioxide 31 mmol/L (21-32) 03/15/22 07:04 POC Total CO2 28 mmol/L (24-31) 03/14/22 13:57 Anion Gap 6 (3-11) 03/15/22 07:04 POC Anion Gap 20.0 mmol/L (16-25) 03/14/22 13:57 POC BUN 16 mg/dl (7-18) 03/14/22 13:57 BUN 12 mg/dl (6-23) 03/15/22 07:04 Creatinine 0.90 mg/dl (0.6-1.4) 03/15/22 07:04 POC Creatinine 1.2 mg/dl (0.6-1.3) 03/14/22 13:57 Est Cr Clr Drug Dosing 134.1 ml/min 03/15/22 07:04 Est GFR ( Amer) 134.2 ml/min 03/15/22 07:04 Est GFR (Non-Af Amer) 115.8 ml/min 03/15/22 07:04 BUN/Creatinine Ratio 13.3 (10-20) 03/15/22 07:04 Glucose 103 mg/dl (70-99(Fasting)) H 03/15/22 07:04 POC Glucose (other) 114 mg/dl (70-99) H 03/14/22 13:57 Lactate 0.5 mmol/L (0.4-2.0) 03/14/22 15:27 Calcium 9.1 mg/dl (8.5-10.1) 03/15/22 07:04 POC Ioniz Calcium Mai 1.26 mmol/l (1.12-1.32) 03/14/22 13:57 Magnesium 2.1 mg/dl (1.7-2.4) 03/15/22 07:04 Total Bilirubin 1.2 mg/dl (0.2-1.0) H 03/14/22 13:53 AST 23 U/L (13-39) 03/14/22 13:53 ALT 22 U/L (7-52) 03/14/22 13:53 Alkaline Phosphatase 84 U/L (34-104) 03/14/22 13:53 Total Creatine Kinase 118 U/L (30-223) 03/14/22 13:53 Troponin I High Sens 3.4 pg/ml (0-20) 03/14/22 13:53 Total Protein 8.3 gm/dl (6.0-8.3) 03/14/22 13:53 Albumin 5.0 gm/dl (3.4-5.0) 03/14/22 13:53 Globulin 3.3 gm/dl (2.5-4.0) 03/14/22 13:53 Albumin/Globulin Ratio 1.5 (0.9-2) 03/14/22 13:53 Procalcitonin < 0.05 ng/ml (0-0.5) 03/14/22 13:53 TSH 0.869 uIu/ml (0.300-4.500) 03/14/22 13:53 Cortisol AM Sample 14.35 mcg/dl (6.2-22.6) 03/15/22 07:04 Urine Color Yellow 03/14/22 22:00 Urine Appearance Clear (Clear) 03/14/22 22:00 Urine pH 8.0 (4.5-7.5) H 03/14/22 22:00 Ur Specific [place] 1.032 (1.000-1.030) H 03/14/22 22:00 Urine Protein Negative (Negative) 03/14/22 22:00 Urine Glucose (UA) Negative (Negative) 03/14/22 22:00 Urine Ketones Negative (Negative) 03/14/22 22:00 Urine Blood 2+ (Negative) H 03/14/22 22:00 Urine Nitrite Negative (Negative) 03/14/22 22:00 Urine Bilirubin Negative (Negative) 03/14/22 22:00 Urine Urobilinogen Negative (Negative) 03/14/22 22:00 Ur Leukocyte Esterase Trace (Negative) H 03/14/22 22:00 Urine WBC (Auto) 10-30 /hpf (0-5) H 03/14/22 22:00 Urine RBC (Auto) >30 /hpf (0-4) H 03/14/22 22:00 U Hyaline Cast (Auto) 1-5 /lpf (0-5) 03/14/22 22:00 U Epithel Cells (Auto) 20-30 /lpf (0-5) H 03/14/22 22:00 Urine Bacteria (Auto) Negative (Negative) 03/14/22 22:00 Ur Renal Epithelial Cell Not Reportable 03/14/22 14:03 Urine Crystals Not Reportable 03/14/22 14:03 Calcium Oxalate Crystal Present (None Prsent) A 03/14/22 14:03 Urine Mucus Present (None Prsent) A 03/14/22 14:03 Salicylates < 3.0 mg/dl (3.0-30) L 03/14/22 15:24 Urine Opiates Screen Neg (Neg) 03/14/22 14:03 Ur Methadone, Qual Neg (Neg) 03/14/22 14:03 Acetaminophen < 3 ug/ml (10-30) L 03/14/22 15:24 Urine Barbiturates Neg (Neg) 03/14/22 14:03 Ur Phencyclidine (PCP) Neg (Neg) 03/14/22 14:03 U Amphetamin/Meth Scrn Neg (Neg) 03/14/22 14:03 MDMA (Ecstasy) Screen Neg (Neg) 03/14/22 14:03 U Benzodiazepines Scrn Neg (Neg) 03/14/22 14:03 Ur Cocaine Metabolite Neg (Neg) 03/14/22 14:03 U Marijuana (THC) Screen Neg (Neg) 03/14/22 14:03 Ethyl Alcohol mg/dL < 10.0 mg/dl (<10.0) 03/14/22 15:24 Lyme Disease IgG Ab Negative (Negative) 03/14/22 13:53 SARS-CoV-2, RNA, NAAT NEGATIVE (NEGATIVE) 03/14/22 13:[address] 03/14/22 14:05 CT OF THE CHEST WITH IV CONTRAST CLINICAL HISTORY: eval for aspiration: unresponsive COMPARISON STUDY: Chest radiograph performed earlier today. TECHNIQUE: Following IV administration of 93 mL of Optiray, helical axial images of the chest were obtained. Sagittal and coronal reconstructions were viewed as well as maximal intensity projections on an independent 3-D workstation. Automated exposure control was utilized for the study. A dose lowering technique was utilized adhering to the principles of ALARA. CT DOSE: 1043.04 mGy.cm FINDINGS: Endotracheal and nasogastric tubes are in place. No thoracic aortic dissection is present. Pulmonary arteries are suboptimally opacified but there is no central pulmonary embolus. There is borderline cardiomegaly. No enlarged thoracic lymph nodes are present. There is no pneumothorax or pleural effusion. There are mild alveolar opacities within the left lung. There is no cavitation. Central airways are patent. No acute fracture is identified within visualized portions of the thorax. Mild splenomegaly is noted. IMPRESSION: 1. Mild airspace opacities within the left lung which favor an infectious process. Aspiration pneumonitis is also within the differential. 2. No pneumothorax. 3. Borderline cardiomegaly. 4. Mild splenomegaly. ACT 112: Negative or not required by law. Electronically signed by: Rc Oshea M.D. 03/14/2022 2:[address] 03/14/22 14:05 CT OF THE HEAD WITHOUT CONTRAST CLINICAL HISTORY: unresponsive COMPARISON STUDY: No previous studies for comparison. TECHNIQUE: Helical axial images of the head were obtained without IV contrast. Automated exposure control was utilized for the study. A dose lowering technique was utilized adhering to the principles of ALARA. FINDINGS: No acute intracranial hemorrhage, midline shift or mass effect is present. The ventricular system is unremarkable. The basal cisterns are patent. No extra-axial collections are present. There are no findings to suggest acute dural sinus thrombosis or acute territorial infarct. No significant calvarial abnormalities are present. Fluid within the nasopharynx is likely related to intubation. Minimal ethmoid sinus mucosal thickening is present. IMPRESSION: 1. No acute intracranial findings. 2. No acute calvarial fracture. ACT 112: Negative or not required by law. Electronically signed by: Rc Oshea M.D. 03/14/2022 2:36 PM Chest X-Ray 03/14/22 14:08 XR chest 1V portable supine CLINICAL HISTORY: post intubation COMPARISON STUDY: No previous studies for comparison. FINDINGS: Tip of endotracheal tube is 7.5 cm above the meri. Tip of nasogastric tube is within the gastric cardia. Enlargement of the cardiac silhouette may be technical. No pneumothorax is identified on supine exam. Lungs are clear. Pulmonary vascularity is normal. IMPRESSION: 1. Tip of endotracheal tube 7.5 cm above the meri. The tube could be advanced 2 cm. 2. Tip of nasogastric tube within the gastric cardia. Tip could be advanced 5 cm. 3. Enlargement of the cardiac silhouette, likely technical. ACT 112: Negative or not required by law. Electronically signed by: Rc Oshea M.D. 03/14/2022 2:16 PM Hospital Course (1) Dehydration: 26yo M with PMHx of depression, HIV admitted after being being found on park bench not responsive. #Unresponsiveness - presented via EMS after being found unresponsive on park bench while on a run - Amnestic for whole episode- spontaneously awoken in ED and successfully extubated - most likely due to dehydration, heat stroke, and vasovagal symptoms. - cardiac workup performed; EKG showed afib initially requiring cardioversion; ECHO normal - Urine Tox screen negative - metabolically with normal HCO3 and without gap - Potassium 5, Mag 1.7; repeat wnl - WBC normal; blood and urine cx negative thus far - Cardiology consulted: -unlikely due to malignant arrhythmia -atrial fib likely a result of presentation and not the cause -will f/u outpatient and consider further monitoring with loop recorder versus event monitor #Afib - ECG obtained via GIOVANNI - attached to hard chart - Cardioverted for HR of 127 in the ED; converted to NSR - as above #Aspiration pneumonitis -No further abx at this time #Hypomagnesemia, resolved #Abnormal urinalysis - + WBC, +RBC, + hyaline Casts, >30 epithelial cells - tx with empiric ceftriaxone x1 in ED, d/c'd - preliminary urine cx no growth after 24 hours (2) Heat stroke: (3) Paroxysmal atrial fibrillation: (4) Aspiration pneumonitis: Total Time Total Time Spent Total Time Spent (In Minutes): <30 Discharge Plan Discharge Items Patient Disposition: Home - Self-Care Reason For Visit: UNRESPONSIVE,CARDIOVERSION Discharge Diagnosis: Dehydration, Heat Exhaustion, Afib Activity: Per Instructions section Non-emergency contact: Primary Care Provider and Hydrogeologist Call non-emergency contact if: you have any medication questions and your symptoms worsen Follow-up/Referrals: Dayo Álvarez MD [Physician] - [facility] [Primary Care Provider] - Diet: Regular Addtl Attending Provider Instructions: You were admitted to the hospital after being found unresponsive yesterday afternoon while you are on a run in [facility]. Upon initial evaluation your lab work was relatively unremarkable. We obtained an initial EKG which showed atrial fibrillation with RVR. This required us to perform a cardioversion which subsequently brought you back into normal sinus rhythm. We obtained an echocardiogram which was normal. We also consulted our cardiology department for further evaluation recommendations on your case. From their standpoint they do not believe the cause of this to be cardiac related. More likely this was due to combination of dehydration and heat exhaustion. Also showed typical symptoms of a vasovagal response including dizziness and an episode of vomiting which gives us further justification for this diagnosis. For the atrial fibrillation we believe this was secondary to the heat exhaustion rather than a cause for you passing out. However, with that being said you will follow-up with cardiology as they will want to likely put you on a 30-day or longer heart monitor to assess for any abnormal rhythms. You should rest for the next 4 to 5 days and gradually ease back into activity as tolerated. You should also follow-up with your primary care provider in the next week or two. Pending Studies at Discharge: No Stand-Alone Forms: My [facility] [employer], Smoking Cessation Medications and DC Order Prescriptions: Continued escitalopram oxalate 10 mg tablet 10 mg PO DAILY RF: 0 emtricitabine-tenofovir (TDF) 200-300 mg tablet 1 tab PO DAILY RF: 0 Discharge Orders: Discharge Order (Routine); Ordered 03/15/22 Ordered By: Pito Keys Admission Data Admit Date/Time: 03/14/22 17:27 Attending Provider: Angel Muniz Admit Provider: Scot Tristan Primary Care Provider: [facility] Other Providers: Scot Tristan ; Dayo Álvarez Supervising Physician Co-Signing Physician Notes I personally examined the patient and verified all alvarez points of history and exam, discussed case, and agree with decision making with Dr Keys. Feels good and wants to go home. Case discussed with cardiology. Input greatly appreciated. Patient notes that while he is a regular runner, he had not really run in the mid day heat in quite a while. He also notes that because of depression/anxiety issues he was not doing nearly as good job taking care of himselfparticularly with eating and drinking, and believes that probably added to dehydration. Vitals noted, in general he is awake and alert pleasant no distress. HEENT normocephalic atraumatic mucous membranes moist. Breathing unlabored no accessory muscle use good effort. Skin shows no rashes no pallor or icterus. Neuro without focal deficits. Mental status shows good recent and remote recall normal mood and affect good judgment and insight. Unresponsive episodeafter reviewwhile he did have atrial fibrillation(see below) it is highly unlikely that cardiac rhythm issues were at playhe was out for quite a while, his troponins were normal at 3.4, EKGs outside of Art fib were sinus with early repolarization otherwise normal, echo was quite reassuring. Nothing else seems to be at play neurologicallywe discussed that it is possible that he may have had a seizure in the midst of his time being unresponsive, but given that it would likely would have been provoked from dehydration/heat exhaustion, a one-time seizure provoked with no clear reason for recurrence would not really be something that would require active management. Most likely dehydration followed by heat exhaustion as the culprit. He believes this to be the case as well. We discussed the practical as well as mind/body implications of being more stressed and depressed recently (practical being that a change in his eating habits and poor hydration habits would certainly play a role in the event, as well as heightened anxiety and depression making it more likely for something like vasovagal physiology to ensue). Stable for home. Cardiology to discuss with electrophysiology as far as event monitor versus loop recorder (see below with Art yan), discussed hydration, gentle return to activity, close outpatient follow-up (he notes his PCP at [facility] is quite reliable) Atrial fibrillationcardiology believes provoked by the heat exhaustion above, would like ambulatory monitoring to follow for if this is truly paroxysmal, loop versus event after discussion with EP Stable for home, otherwise as above Resident Activity Tracking Resident Involvement: Resident Care Provided Care Provided: Adult Hospital Medicine
--- NOTE | 2022-03-15 18:01 | Billing Data ---
Date of Service March 15, 2022 Coding Level of Care Code D/C DAY MANAGEMENT <30 MINS
[2022-03-16 10:30] LABS: iSTAT Hematocrit 43 % (42-52); iSTAT Hemoglobin 14.6 g/dl (14.0-18.0); iSTAT Potassium 4.4 mmol/L (3.3-5.0); iSTAT Sodium 139 mmol/L (135-144)
[2022-03-16 10:31] LABS: iSTAT Arterial Blood Gas HCO3 27 meg/L (19-24); iSTAT Arterial Blood Gas pCO2 52 mmHg (35-46); iSTAT Arterial Blood Gas pH 7.32 (7.35-7.45); iSTAT Arterial Blood Gas pO2 114 mmHg (80-95); iSTAT Carbon Dioxide 29 mmol/L (24-31)
--- NOTE | 2022-03-16 10:34 | Electrocardiogram Report ---
Test Reason : Blood Pressure : / mmHG Vent. Rate : 129 BPM Atrial Rate : 138 BPM P-R Int : 000 ms QRS Dur : 088 ms QT Int : 326 ms P-R-T Axes : 000 064 048 degrees QTc Int : 477 ms Atrial fibrillation with rapid ventricular response with premature ventricular or aberrantly conducte d complexes Early repolarization Abnormal ECG No previous ECGs available Confirmed by Dayo Álvarez ([id number]) on 03/16/2022 10:34:19 AM Referred By: REFERRED SELF Confirmed By:Dayo Álvarez
--- NOTE | 2022-03-16 10:36 | Electrocardiogram Report ---
Test Reason : Blood Pressure : / mmHG Vent. Rate : 067 BPM Atrial Rate : 067 BPM P-R Int : 130 ms QRS Dur : 088 ms QT Int : 408 ms P-R-T Axes : 058 043 031 degrees QTc Int : 431 ms Normal sinus rhythm Normal ECG When compared with ECG of 14-MAR-2022 13:46, Sinus rhythm has replaced Atrial fibrillation Vent. rate has decreased BY 62 BPM Confirmed by Dayo Álvarez ([id number]) on 03/16/2022 10:36:18 AM Referred By: REFERRED SELF Confirmed By:Dayo Álvarez
--- NOTE | 2022-03-16 10:40 | Electrocardiogram Report ---
Test Reason : Blood Pressure : / mmHG Vent. Rate : 087 BPM Atrial Rate : 087 BPM P-R Int : 126 ms QRS Dur : 086 ms QT Int : 352 ms P-R-T Axes : 065 055 044 degrees QTc Int : 423 ms Poor data quality, interpretation may be adversely affected Normal sinus rhythm Normal ECG When compared with ECG of 14-MAR-2022 15:03, No significant change was found Confirmed by Dayo Álvarez ([id number]) on 03/16/2022 10:40:14 AM Referred By: REFERRED SELF Confirmed By:Dayo Álvarez
--- NOTE | 2022-03-16 11:29 | Electrocardiogram Report ---
Test Reason : Blood Pressure : / mmHG Vent. Rate : 072 BPM Atrial Rate : 072 BPM P-R Int : 118 ms QRS Dur : 090 ms QT Int : 394 ms P-R-T Axes : 042 053 037 degrees QTc Int : 431 ms Normal sinus rhythm Normal ECG When compared with ECG of 14-MAR-2022 18:03, No significant change was found Confirmed by Dayo Álvarez ([id number]) on 03/16/2022 11:28:24 AM Referred By: REFERRED SELF Confirmed By:Dayo Álvarez
== END 2022-03-15 18:16 | disposition home or self-care (01) | DRG 922 ==
LOC: ED 13:49 → SUATTDRO 17:27 → 2E 17:27